=== PATIENT | male | born 1965 | race Caucasian/White ===

== ENCOUNTER 2025-03-24 22:03 | Inpatient (IN) | payer BC, SELFPAY ==
[2025-03-24] VITALS (8 sets, daily range): BP systolic 92–145; BP diastolic 51–93
[2025-03-24 13:22] LABS: Hematocrit 33.9 % (39.0-52.0); Hemoglobin 10.9 g/dL (13.0-18.0); Mean Corp Hgb Conc. 32.2 g/dL (33.0-37.0); Mean Corpuscular Volume 80.7 fL (80.0-94.0); Nucleated Red Blood Cells % 0 % (-); Platelet Count 300 10^3/uL (130-400); Red Cell Dist. Width 16.3 % (11.5-14.5)
[2025-03-24 13:51] LABS: ALT (SGPT) 15 U/L (0-50); AST (SGOT) 18 U/L (17-59); Albumin 3.7 g/dl (3.5-5.0); Alkaline Phosphatase 66 U/L (38-126); Blood Urea Nitrogen 23 mg/dl (9-20); Calcium 8.8 mg/dl (8.4-10.2); Carbon Dioxide 16 mmol/L (22-30); Chloride 113 mmol/L (98-107); Glucose 94 mg/dl (70-99); Lipase 184 U/L (23-300); Potassium 3.6 mmol/L (3.5-5.1); Sodium 138 mmol/L (135-145); Total Protein 6.7 g/dl (6.3-8.2); eGFR 49.63
[2025-03-24 14:24] LABS: COVID-19 Antigen Negative (Negative)
--- NOTE | 2025-03-24 17:33 | ED.GENMED ---
History of Present Illness
<Renata Ron PA-C - Last Filed: 03/25/25 02:25>
General
Chief Complaint: Abdominal Symptoms
Source: patient
Exam Limitations: none
Time Seen by Provider: 03/24/25 16:55
Nursing documentation reviewed up to this point in time: agreed with
History of Present Illness
History of Present Illness:
Patient is a 59-year-old male with history CAD s/p stents who presents to the emergency department with 2 days of shaking chills now with vomiting, diarrhea, and lower abdominal pain. Patient states that yesterday he experienced 'shaking chills'.
When he woke this morning he had multiple episodes of vomiting and diarrhea. He also describes a pain in his lower abdomen, most significant in his left lower quadrant. Symptoms have been relatively consistent throughout the day today prompting
visit to the emergency department.
He denies any dysuria or hematuria. No known fever. No other viral URI symptoms.
Patient states that he was recently admitted at an outside hospital for over 1 week for diverticulitis complicated by E. coli bacteremia. He was discharged about 1 month ago.
He is scheduled to see his GI doctor in June.
Review of Systems
<Renata Ron PA-C - Last Filed: 03/25/25 02:25>
Review of Systems
Allergies reviewed?: Yes
All Other Systems: ROS reviewed and negative except as documented in HPI and ROS
Phy Exam
<Renata Ron PA-C - Last Filed: 03/25/25 02:25>
Physical Exam
Physical Exam:
Vitals: Tachycardic on arrival, improved by assessment. Afebrile
General: Patient is well appearing, no acute distress. Nontoxic appearing
Skin: Warm and dry, no rashes or lesions
Head: Normocephalic, atraumatic
Eyes: Sclera nonicteric.
Throat: Protecting airway
Neck: Normal ROM, no cervical spine tenderness, no meningismus
Cardiac: Regular rate and rhythm, no murmurs.
Pulm: Normal respiratory effort, no wheezes, rales, rhonchi heard on exam
Abdomen: Abdomen soft. Focal tenderness in left lower quadrant. No rebound tenderness or guarding. No CVA tenderness.
Extremities: No evidence of cyanosis or edema. Palpable DP pulses bilaterally
Neuro: AAOx3. Grossly intact.
Psychiatric: Normal affect.
Course
<Renata Ron PA-C - Last Filed: 03/25/25 02:25>
Orders/Labs/Results
Orders:
Orders
03/24/25 13:05
COVID-19 Antigen Urgent
Source: Nasal Swab
Complete Blood Count/With Diff Urgent
Comprehensive Metabolic Panel Urgent
Lipase Urgent
Influenza A+B Rapid Molecular Urgent
DARIELA Source: Nasal Swab
Specimen Description:
03/24/25 13:33
STOOL [C difficile Antigen & Toxins] Urgent
DARIELA Source: Feces/Stool
Specimen Description:
Stool Culture Urgent
DARIELA Source: Feces/Stool
Specimen Description:
03/24/25 17:17
0.9% Sodium Chloride 1000 ml [Nss] 1,000 ml IV BOLUS
03/24/25 17:18
CT Abd/pelvis W Iv Cont Urgent
Comment:
Reason For Exam: LLQ pain
03/24/25 18:25
Lactic Acid Q4H
Comment: CANCEL 2nd LACTIC ACID IF 1st LACTIC ACID IS LESS THAN 2
Urinalysis Reflex To Culture Urgent
Date Specimen was Collected: 03/24/25
Time Specimen was Collected: 17:37
Urine Microscopic Reflex Cult Urgent
Blood Culture Q30M
DARIELA Source: Blood/Venous
Specimen Description:
Blood Culture Q30M
DARIELA Source: Blood/Venous
Specimen Description:
03/24/25 20:30
Morphine Sulfate 4 mg IV NOW STA
Piperacillin/Tazo 3.375 Gram [Zosyn] 3.375 gram in 50 ml IV NOW
03/24/25 21:12
Admit/Transfer Patient As Directed
Co-Sign Provider:
Level of Care: Inpatient admission
Assign to:: Medical/Surgical
Physician / Group: Sarah
Diagnosis: acute diverticulitis
Reason for Hospitalization: acute diverticulitis with intra-mural abscess
Expected length of stay greater than two midnights?: Yes
ELOS- Estimated Length of Stay in days: 2
I certify the patient meets the requirements for IP care: Yes
PRN Pain Medication Management As Directed
May give lesser potent ordered pain med per pt: Yes
preference::
Protocol:: Medication orders for pain may be administered in a
manner that supports deferring to patient preference
when the pt is:
- Requesting an ordered lesser potent pain medication.
Least to most potent pain medications are defined
as: acetaminophen < NSAID < tramadol < opioids
(morphine, oxycodone, hydromorphone).
- Requesting a lesser dose of the same medication IF
ORDERED.
- Requesting a less intrusive route of administration
if both routes are prescribed by the provider (PO <
IV).
03/24/25 21:13
Code Status As Directed
Resuscitation Status: Full Code
03/25/25 02:02
Acetaminophen [Tylenol] 650 mg PO Q4HPRN PRN
Colchicine 0.6 mg PO DAILYPRN PRN gout
Heparin 5,000 units SC Q8
Lactated Ringers [Lr] 1,000 ml IV 100 mls/hr
Morphine Sulfate 2 mg IV Q4HPRN PRN
Ondansetron Injectable [Zofran] 4 mg IV Q6HPRN PRN
Oxycodone [Roxicodone] 5 mg PO Q4HPRN PRN
03/25/25 02:02
ColoRectal Surgery Consult Routine
Consulting Provider: Chano Salinas
Was physician already notified: Yes
Reason for consult: acute diverticulitis with intra-mural abscess
Activity As Directed
Activity Level: With Assistance
Vital Signs As Directed
Frequency: Per unit guidelines
DX Deep Vein Thrombosis Video Routine
03/25/25 02:30
Piperacillin/Tazo 3.375 Gram [Zosyn] 3.375 gram in 50 ml IV Q6H
03/25/25 06:00
Basic Metabolic Panel IN AM
Complete Blood Count/No Diff IN AM
Magnesium IN AM
03/25/25 08:00
Allopurinol [Zyloprim] 100 mg PO DAILY
Amlodipine [Norvasc] 10 mg PO DAILY
Aspirin Low Dose EC [Aspir Low (Enteric Coated)] 81 mg PO DAILY
Losartan [Cozaar] 100 mg PO DAILY
Metoprolol Xl [Toprol Xl] 50 mg PO DAILY
Prasugrel Hydrochloride [Effient] 10 mg PO DAILY
03/25/25 Dinner
NPO
Allow oral meds: Yes
Allow clear liquids: Sips of Clears
Abnormal Lab Results
03/24/25 03/24/25
13:05 18:25
WBC 12.1 H 10^3/uL
(4.8-10.8)
RBC 4.20 L 10^6/uL
(4.70-6.10)
Hgb 10.9 L g/dL
(13.0-18.0)
Hct 33.9 L %
(39.0-52.0)
MCH 26.0 L pg
(27.0-31.0)
MCHC 32.2 L g/dL
(33.0-37.0)
RDW 16.3 H %
(11.5-14.5)
Abs Immat Gran (auto) 0.1 H 10^3/uL
(0-0.05)
Absolute Neuts (auto) 11.5 H 10^3/uL
(1.4-6.5)
Absolute Lymphs (auto) 0.3 L 10^3/uL
(1.2-3.4)
Neutrophils % 95.1 H %
(42.2-75.2)
Lymphocytes % 2.6 L %
(20.5-51.1)
Monocytes % 1.5 L %
(1.7-9.3)
Chloride 113 H mmol/L
(98-107)
Carbon Dioxide 16 L mmol/L
(22-30)
BUN 23 H mg/dl
(9-20)
Creatinine 1.6 H mg/dL
(0.7-1.3)
Urine Bacteria (Reflex) Few A
(Negative)
Urine Albumin (Reflex) 1+ A
(Neg - Trace)
03/24/25 13:05
03/24/25 13:05
Vital Signs
Initial and Last Documented VS:
Initial Vital Signs
Temp Pulse Resp BP Pulse Ox
99.5 F 127 18 109/93 96
03/24/25 12:57 03/24/25 12:57 03/24/25 12:57 03/24/25 12:57 03/24/25 12:57
Last Documented Vital Signs
Temp Pulse Resp BP Pulse Ox
98.3 F 84 22 110/54 98
03/24/25 19:55 03/24/25 19:55 03/24/25 19:55 03/24/25 19:55 03/24/25 20:11
<Milton Cornelius, DO - Last Filed: 03/24/25 21:26>
Orders/Labs/Results
Orders:
Orders
03/24/25 13:05
COVID-19 Antigen Urgent
Source: Nasal Swab
Complete Blood Count/With Diff Urgent
Comprehensive Metabolic Panel Urgent
Lipase Urgent
Influenza A+B Rapid Molecular Urgent
DARIELA Source: Nasal Swab
Specimen Description:
03/24/25 13:33
STOOL [C difficile Antigen & Toxins] Urgent
DARIELA Source: Feces/Stool
Specimen Description:
Stool Culture Urgent
DARIELA Source: Feces/Stool
Specimen Description:
03/24/25 17:17
0.9% Sodium Chloride 1000 ml [Nss] 1,000 ml IV BOLUS
03/24/25 17:18
CT Abd/pelvis W Iv Cont Urgent
Comment:
Reason For Exam: LLQ pain
03/24/25 18:25
Lactic Acid Q4H
Comment: CANCEL 2nd LACTIC ACID IF 1st LACTIC ACID IS LESS THAN 2
Urinalysis Reflex To Culture Urgent
Date Specimen was Collected: 03/24/25
Time Specimen was Collected: 17:37
Urine Microscopic Reflex Cult Urgent
Blood Culture Q30M
DARIELA Source: Blood/Venous
Specimen Description:
Blood Culture Q30M
DARIELA Source: Blood/Venous
Specimen Description:
03/24/25 20:30
Morphine Sulfate 4 mg IV NOW STA
Piperacillin/Tazo 3.375 Gram [Zosyn] 3.375 gram in 50 ml IV NOW
03/24/25 21:12
Admit/Transfer Patient As Directed
Co-Sign Provider:
Level of Care: Inpatient admission
Assign to:: Medical/Surgical
Physician / Group: Sarah
Diagnosis: acute diverticulitis
Reason for Hospitalization: acute diverticulitis with intra-mural abscess
Expected length of stay greater than two midnights?: Yes
ELOS- Estimated Length of Stay in days: 2
I certify the patient meets the requirements for IP care: Yes
PRN Pain Medication Management As Directed
May give lesser potent ordered pain med per pt: Yes
preference::
Protocol:: Medication orders for pain may be administered in a
manner that supports deferring to patient preference
when the pt is:
- Requesting an ordered lesser potent pain medication.
Least to most potent pain medications are defined
as: acetaminophen < NSAID < tramadol < opioids
(morphine, oxycodone, hydromorphone).
- Requesting a lesser dose of the same medication IF
ORDERED.
- Requesting a less intrusive route of administration
if both routes are prescribed by the provider (PO <
IV).
03/24/25 21:13
Code Status As Directed
Resuscitation Status: Full Code
03/25/25 02:02
Acetaminophen [Tylenol] 650 mg PO Q4HPRN PRN
Colchicine 0.6 mg PO DAILYPRN PRN gout
Heparin 5,000 units SC Q8
Lactated Ringers [Lr] 1,000 ml IV 100 mls/hr
Morphine Sulfate 2 mg IV Q4HPRN PRN
Ondansetron Injectable [Zofran] 4 mg IV Q6HPRN PRN
Oxycodone [Roxicodone] 5 mg PO Q4HPRN PRN
03/25/25 02:02
ColoRectal Surgery Consult Routine
Consulting Provider: Chano Salinas
Was physician already notified: Yes
Reason for consult: acute diverticulitis with intra-mural abscess
Activity As Directed
Activity Level: With Assistance
Vital Signs As Directed
Frequency: Per unit guidelines
DX Deep Vein Thrombosis Video Routine
03/25/25 02:30
Piperacillin/Tazo 3.375 Gram [Zosyn] 3.375 gram in 50 ml IV Q6H
03/25/25 06:00
Basic Metabolic Panel IN AM
Complete Blood Count/No Diff IN AM
Magnesium IN AM
03/25/25 08:00
Allopurinol [Zyloprim] 100 mg PO DAILY
Amlodipine [Norvasc] 10 mg PO DAILY
Aspirin Low Dose EC [Aspir Low (Enteric Coated)] 81 mg PO DAILY
Losartan [Cozaar] 100 mg PO DAILY
Metoprolol Xl [Toprol Xl] 50 mg PO DAILY
Prasugrel Hydrochloride [Effient] 10 mg PO DAILY
03/25/25 Dinner
NPO
Allow oral meds: Yes
Allow clear liquids: Sips of Clears
Abnormal Lab Results
03/24/25 03/24/25
13:05 18:25
WBC 12.1 H 10^3/uL
(4.8-10.8)
RBC 4.20 L 10^6/uL
(4.70-6.10)
Hgb 10.9 L g/dL
(13.0-18.0)
Hct 33.9 L %
(39.0-52.0)
MCH 26.0 L pg
(27.0-31.0)
MCHC 32.2 L g/dL
(33.0-37.0)
RDW 16.3 H %
(11.5-14.5)
Abs Immat Gran (auto) 0.1 H 10^3/uL
(0-0.05)
Absolute Neuts (auto) 11.5 H 10^3/uL
(1.4-6.5)
Absolute Lymphs (auto) 0.3 L 10^3/uL
(1.2-3.4)
Neutrophils % 95.1 H %
(42.2-75.2)
Lymphocytes % 2.6 L %
(20.5-51.1)
Monocytes % 1.5 L %
(1.7-9.3)
Chloride 113 H mmol/L
(98-107)
Carbon Dioxide 16 L mmol/L
(22-30)
BUN 23 H mg/dl
(9-20)
Creatinine 1.6 H mg/dL
(0.7-1.3)
Urine Bacteria (Reflex) Few A
(Negative)
Urine Albumin (Reflex) 1+ A
(Neg - Trace)
03/24/25 13:05
03/24/25 13:05
Vital Signs
Initial and Last Documented VS:
Initial Vital Signs
Temp Pulse Resp BP Pulse Ox
99.5 F 127 18 109/93 96
03/24/25 12:57 03/24/25 12:57 03/24/25 12:57 03/24/25 12:57 03/24/25 12:57
Last Documented Vital Signs
Temp Pulse Resp BP Pulse Ox
98.3 F 84 22 110/54 98
03/24/25 19:55 03/24/25 19:55 03/24/25 19:55 03/24/25 19:55 03/24/25 20:11
<Renata Ron PA-C - Last Filed: 03/25/25 02:25>
MDM/Problems Addressed
Differential Diagnosis Includes:
Not limited to: Diverticulitis, intra-abdominal abscess, bowel perforation, appendicitis, pyelonephritis/UTI, ureterolithiasis, C. difficile colitis, etc.
MDM/Problems Addressed:
59-year-old male presents with shaking chills, vomiting, diarrhea, and lower abdominal pain. Afebrile on arrival and hemodynamically stable. Exam notable for tenderness in the left lower quadrant. No peritoneal signs.
Laboratory evaluation shows leukocytosis (WBC 12.2); other labs are unremarkable. CT abdomen/pelvis demonstrates diverticulitis of the descending/sigmoid colon complicated by intramural abscess formation.
Given CT findings and systemic symptoms, patient requires inpatient admission for IV antibiotics and further management. Zosyn initiated in the ED along with IV fluid resuscitation. Blood cultures obtained.
Colorectal surgery and hospitalist services consulted. Surgery aware and will continue to follow. No immediate surgical intervention required at this time. Patient accepted to hospitalist service in stable condition for ongoing care and monitoring.
Chronic conditions affecting care:
Hypertension, history diverticulitis
Acute Exacerbation and/or Progression of Chronic Illness:
Acute diverticulitis complicated by intramural abscess
<Renata Ron PA-C - Last Filed: 03/25/25 02:25>
*Radiology
Radiology exam reviewed: radiology read reviewed
*Pulse Oximetry
SaO2: 96
Oxygen Mode of Delivery: Room air
Patient hypoxic: no
*EKG
Interpreted by ED Provider?: NA
*Terminal Operator Interpretation
Rate: Terminal Operator- N/A
*Critical Care Note
Total Time (30-74mins, 75-104mins- exclusive of procedures): Not Applicable
<Renata Ron PA-C - Last Filed: 03/25/25 02:25>
Patient Management
Discussion with other providers: Hospitalist and Nut [employer] (Case discussed with colorectal surgeon)
Escalation/DeEscalation of care consider admission/obs:
Admit for IV antibiotics and further management
ED Attending Note
<Renata Ron PA-C - Last Filed: 03/25/25 02:25>
-
Portions of this chart may have been created with voice recognition software.� Occasional wrong word or��sound alike� substitutions may have occurred due to the inherent limitations of voice recognition software.
<Milton Cornelius DO - Last Filed: 03/24/25 21:26>
ED Attending Note
Patient seen and examined by attending physician: Yes
I performed the substantive portion of visit, reviewed & personally made and approve the management plan that is documented in note by myself or LALITO.: Yes
ED Attending Note:
Seen with LALITO agree with assessment and plan nontoxic male
Discharge Plan
Departure
Patient Disposition: Admit
Date of Disposition: 03/24/25
Time of Disposition: 20:52
Presentation/result/management discussed w/ accepting MD/DO: Hospitalist
Discharge Problem:
Diverticulitis of intestine with abscess
Interventions
Interventions:
*Risk Screen - Suicide Last Done: 03/24/25 12:57
*General Assessment Last Done: 03/24/25 12:57
*Neglect/Abuse Screening Last Done: 03/24/25 12:57
*ED- Fall Risk Assessment Last Done: 03/24/25 12:57
*ED COVID-19 Vaccine History Last Done: 03/24/25 12:57
*ED Influenza Vaccine History Last Done: 03/24/25 12:57
PP-Jyubba-[id number] Assessment Last Done: 03/24/25 19:59
[2025-03-24 18:58] LABS: Urine Character Clear (Clear)
[2025-03-24 19:05] LABS: Urine Red Blood Cell 0-2 /HPF (0-2); Urine Squamous Cell 0-2 /LPF (Few); Urine White Cell 0-2 /HPF (0-5)
[2025-03-24] MEDS: NSS 1000 IV (20:04)
[2025-03-24] MEDS: MORPHINE SULFATE 4 MG IV (21:05)
--- NOTE | 2025-03-24 21:06 | HPS.HSE ---
Family Physician
-
Family Physician: Kaitlin Ball MD, [place]
Chief Complaint
-
Abdominal pain
History of Present Illness
Patient is a 59-year-old male with past medical history significant for CAD status post stenting, hypertension, hyperlipidemia, gout, CKD will presents to the emergency department with 3 days of shaking chills, nausea vomiting diarrhea and lower
abdominal pain.
Patient reports onset of shaking chills yesterday. When he awoke this morning he had multiple episodes of vomiting and diarrhea. He denies any hematochezia. He reports sharp pain localized to the left lower quadrant. Reports symptoms have been
constant throughout the day which prompted visit to the ED. He denies any urinary symptoms. He denies any cough shortness of breath or sore throat nasal congestion or other URI symptoms. He denies any rash. He denies any joint swelling aches or
pains.
Patient reports history of regarding diverticulitis distended about 2 years ago. He last had an episode about 1 month ago that was complicated by E. coli bacteremia for which he was on antibiotics with ED hospital for 9 days. He was recommended
surgery but due to his recent AL, status post tenting and brought antibiotic therapy this was deferred until further notice.
Patient stated that when he was admitted to [facility] for his recent diverticulitis he did not have an abscess.
In the emergency department here he was afebrile, blood pressure was 110/54, pulse of 84 oxygen saturation of 98% on room air.
WBC of 12.1, hemoglobin 10.9 platelet 300. BUN and creatinine with a 23 and 1.6 with a bicarb of 16. Glucose was normal.
His CT of the abdomen pelvis showed findings compatible with diverticulitis involving the distal descending colon and sigmoid colon. There is evidence for intramural abscess. No evidence for free intraperitoneal air. No significant free pelvic fluid.
Small 5 mm low-density lesion within the anterior spleen, compatible with small cyst or hemangioma. No further imaging follow-up of this finding is felt to be needed.
Small fat-containing umbilical hernia with no evidence for inflammation/edema.
Moderate atrophy of the left kidney with patchy scarring. This finding is most commonly seen from chronic vascular insufficiency.
Multiple right-sided nephroliths. Preservation of right kidney parenchymal thickness. No evidence for ureteral calculus.
Medical History
Past Medical History
Past Medical History: Reports CAD, HTN, Hypercholesterolemia and Other (Chronic kidney disease, gout)
Past Surgical History: Reports Other
Social History
Tobacco: Non-smoker
Alcohol: None
Drug: None
Personal:
Family History
Family History: Not pertinent
Allergies / Home Medications
Allergies reflects when Allergies were last updated in [employer].
Home Medications with original date entered in [employer]
Allergy/Medication List:
Allergies
Allergy/AdvReac Type Severity Reaction Status Date / Time
No Known Allergies Allergy Unverified 03/24/25 12:58
Home Medications
allopurinol 100 mg tablet 100 mg PO DAILY 03/24/25
amlodipine 10 mg tablet (Norvasc) 10 mg PO DAILY 03/24/25
aspirin 81 mg tablet,delayed release 81 mg PO DAILY 03/24/25
colchicine 0.6 mg tablet 0.6 mg PO DAILYPRN PRN gout 03/24/25
evolocumab 140 mg/mL subcutaneous pen injector (Repatha SureClick) 140 mg SC Q2W 03/24/25
ibuprofen 200 mg tablet (Advil) 400 mg PO Q8HPRN PRN mild pain 03/24/25
losartan 100 mg tablet 100 mg PO DAILY 03/24/25
metoprolol succinate 50 mg tablet,extended release 24 hr (Toprol XL) 50 mg PO DAILY 03/24/25
nitroglycerin 0.4 mg sublingual tablet (Nitrostat) 0.4 mg sublingual [id number] PRN chest pains 03/24/25
prasugrel HCl 10 mg tablet 10 mg PO DAILY 03/24/25
prednisone 20 mg tablet 20 mg PO DAILY 03/24/25
Review of Systems
-
Constitutional: Reports Chills
EENT: Reports No Symptoms
Respiratory: Reports No Symptoms
Cardiac: Reports No Symptoms
Abdomen/GI: Reports Abdominal Pain, Vomiting and Diarrhea
: Reports No Symptoms
Musculoskeletal: Reports No Symptoms
Skin: Reports No Symptoms
Neurological: Reports No Symptoms
Endocrine: Reports No Symptoms
Hematologic/Lymphatic: Reports No Symptoms
Psych: Reports No Symptoms
Physical Exam
Vital Signs
Vital Signs
Temp Pulse Resp BP Pulse Ox
98.3 F 84 22 110/54 98
03/24/25 19:55 03/24/25 19:55 03/24/25 19:55 03/24/25 19:55 03/24/25 20:11
Physical Exam
General: Well Developed, Well Nourished and No Apparent Distress
HEENT: NormoCephalic, Moist mucous membranes and Atraumatic
Respiratory: Clear
Cardiac: S1/S2 and Regular Rhythm; No Murmur or Rub
GI: Soft, Non Distended and Normal Bowel Sounds; No Organomegaly
Rectal: Deferred by Provider
Musculoskeletal: No Clubbing, No Cyanosis and No Edema
Skin: No Rash
Neuro: Nonfocal/grossly intact
Laboratory Results
-
03/24/25 13:05
03/24/25 13:05
Laboratory Results
Lactic Acid Cancelled 03/24/25 21:30
Total Bilirubin 0.7 mg/dl (0.2-1.3) 03/24/25 13:05
AST 18 U/L (17-59) 03/24/25 13:05
ALT 15 U/L (0-50) 03/24/25 13:05
Alkaline Phosphatase 66 U/L (38-126) 03/24/25 13:05
Lipase 184 U/L (23-300) 03/24/25 13:05
Data Reviewed
-
CT Scan: Report Reviewed by me
Lab Data: Labs Reviewed by me
Old Records: Reviewed
Impression/Plan
-
IMPRESSION:
59-year-old with history of CAD status post recent AL with 2 stents placed and known stentable small artery that was also diseased and possibly may need coronary artery bypass, CVA gout on allopurinol, as needed colchicine and as needed prednisone,
hypertension, hyperlipidemia, CKD stage III recurrent diverticulitis who now presents with abdominal pain and found to have acute diverticulitis with intramural abscess new compared to prior. He is afebrile currently. He is hemodynamically stable.
Prior diverticulitis complicated by E. coli bacteremia
PLAN:
Acute sigmoid colitis with intramural abscess
[facility]
-N.p.o. for now except ice chips
-Continue with IV Zosyn
-Blood cultures have been sent
-Will consult surgery, may need cardiology consult
CAD status post AL -last stent placed in December. Currently on dual antiplatelet therapy
-Will continue aspirin and prasugrel for now pending surgery evaluation
-Continue metoprolol
-He is on evolocumab
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
-Continue allopurinol
DVT prophylaxis�heparin subcu
CODE STATUS�full code
[2025-03-24] MEDS: ZOSYN 50 IV (21:07)
[2025-03-25 01:00] VITALS: BP 153/69
[2025-03-25 02:41] VITALS: BMI 27.9
[2025-03-25] MEDS: HEPARIN 5000 UNITS SC ×3 (02:51→16:52)
[2025-03-25] MEDS: LR 1000 IV ×2 (02:52→14:29)
[2025-03-25] MEDS: ZOSYN 50 IV ×4 (04:58→22:08)
[2025-03-25 06:13] LABS: Hematocrit 28.8 % (39.0-52.0); Hemoglobin 9.2 g/dL (13.0-18.0); Mean Corp Hgb Conc. 31.9 g/dL (33.0-37.0); Mean Corpuscular Volume 80.7 fL (80.0-94.0); Platelet Count 233 10^3/uL (130-400); Red Cell Dist. Width 16.4 % (11.5-14.5)
[2025-03-25 06:26] LABS: Blood Urea Nitrogen 19 mg/dl (9-20); Calcium 8.2 mg/dl (8.4-10.2); Carbon Dioxide 19 mmol/L (22-30); Chloride 111 mmol/L (98-107); Estimated Creatinine Clearance 43 ml/min; Glucose 89 mg/dl (70-99); Magnesium 1.6 mg/dl (1.6-2.3); Potassium 3.7 mmol/L (3.5-5.1); Sodium 136 mmol/L (135-145); eGFR 46.15
--- NOTE | 2025-03-25 07:26 | W.PN.HOSP.TC ---
Addendum entered and electronically signed by Greyson Bhandari MD 03/26/25 17:09:
I personally reviewed and evaluated this patient with the resident. I agree with above unless if otherwise stated below.
I personally reviewed labs and imaging hr business partner consultant notes case management note
Addendum entered and electronically signed by Greyson Bhandari MD 03/25/25 12:47:
Acute diverticulitis with potential abscess
Colorectal surgery
I ordered concern if plan for drain then potential risk for increased translocation
IV antibiotics
IV fluids
Clear liquid diet
Advance as tolerated
CAD s/p [place], PCI in December
Continue DAPT
Continue beta-blockers
Continue monoclonal Repatha
Gout, chronic, Tophi
Continue allopurinol
Read, reviewed, and agree. See same day progress note for additional details. Time spent reviewing records in EMR, med rec, consults, notes, d/w consultants, nursing, family, and CM
Original Note:
Today's Communication/Plan
-
Colorectal consult
Infectious disease consult
IRAD consult- regarding drainage of Abcess (<1cm)
Follow blood cultures
Assessment / Plan
Assessment / Plan
59-year-old male with past medical history significant for CAD status post stenting, hypertension, hyperlipidemia, gout, CKD presented with fever, chills and abdominal pain for last 3 days.
Yesterday he started having chills and the pain got worse that is why he presented to the ER.
In the emergency department here he was afebrile, blood pressure was 110/54, pulse of 84 oxygen saturation of 98% on room air.WBC of 12.1, hemoglobin 10.9 platelet 300. BUN and creatinine with a 23 and 1.6 with a bicarb of 16.
CT of the abdomen pelvis showed findings compatible with diverticulitis involving the distal descending colon and sigmoid colon. There is evidence for intramural abscess.
As per the patient, he had CABG done in December 2024 about 3 months ago in [place]. He was admitted in [facility] for an episode of diverticulitis, with bacteremia. Surgery was suggested for perforated bowel but due to his recent CABG it was
not done. He remained in hospital for 8 days and then took antibiotics for another 5 days at home.
Colorectal surgery consulted regarding the intramural abscess. Currently patient is on Zosyn
Leukocytosis resolved
Anemia with increased RDW
Patient has history of CKD, currently his serum creatinine is 1.7. eGFR 46.
Assessment/plan
#Acute diverticulitis with intramural abscess
Keep n.p.o. and continue IV fluids
Get records from [place]
Continue Zosyn
Colorectal consult
Infectious disease consult
IRAD consult- regarding drainage of Abcess (<1cm)
Follow blood cultures
Currently on dual antiplatelet therapy-cardiology consult for recent Stent?
Optimize pain management
# Leukocytosis
Resolved
#Coronary artery disease
s/p 4 MIs, 2 stents, last stent placed in December 2024
Dual antiplatelet therapy
Continue metoprolol
He is on Repatha therapy
#Gout
Tophi on fingers and elbows
Continue allopurinol
#CKD
Hold losartan
And amlodipine
DVT prophylaxis�heparin subcu
CODE STATUS�full code
Anticipated Discharge: > 48 hours
Subjective/Interval History
-
Date of Service: March 25, 2025
Patient seen and examined at bedside
Lying comfortably in bed, alert, oriented, reports some discomfort in left lower quadrant but no significant pain, denies nausea, vomiting, diarrhea
Remained afebrile overnight, currently n.p.o.
Objective Data
-
Labs:
Laboratory Results
03/25/25
05:34
WBC 10.6
Hgb 9.2 L
Hct 28.8 L
Plt Count 233 D
Sodium 136
Potassium 3.7
Chloride 111 H
Carbon Dioxide 19 L
BUN 19
Creatinine 1.7 H
Glucose 89
Calcium 8.2 L
Vital Signs:
Vital Signs
Temp Pulse Resp BP Pulse Ox
98.3 F 84 22 110/54 98
03/24/25 19:55 03/24/25 19:55 03/24/25 19:55 03/24/25 19:55 03/24/25 20:11
Review of Systems
-
All other systems: Reviewed and negative
Physical Exam
-
General: Well Developed, Well Nourished and No Apparent Distress
HEENT: Normocephalic, Moist Mucous Membranes, Anicteric and [place] Conjunctivae
Respiratory: Clear to Auscultation; Negative Wheezes, Rales or Rhonchi
Cardiac: Regular Rhythm and S1/S2
GI: Soft, Normal Bowel Sounds and Tender (Mild tenderness in left lower quadrant)
Musculoskeletal: No Clubbing, No Cyanosis, No Edema and Other (Tophi on fingers and elbows)
Skin: Warm and Dry
Neuro: Awake and AO x 3
Psych: Calm
[2025-03-25 07:46] VITALS: BP 123/63
[2025-03-25] MEDS: ZYLOPRIM 100 MG PO (07:49)
[2025-03-25] MEDS: TOPROL XL 50 MG PO (07:49)
[2025-03-25] MEDS: ASPIR LOW (ENTERIC COATED) 81 MG PO (07:49)
[2025-03-25] MEDS: COZAAR 100 MG PO (07:49)
[2025-03-25] MEDS: NORVASC 10 MG PO (07:49)
[2025-03-25] MEDS: EFFIENT 10 MG PO (07:53)
--- NOTE | 2025-03-25 13:01 | CON.CRS ---
Consultation
-
Date/Time Consultation Requested: 03/24/2025, 02:02
Date/Time Consultation Performed: 03/25/2025, 08:50
Requesting Provider: Carol Smith MD
Performing Provider: Chano Salinas MD
Reason for Consultation: diverticulitis
Medical History
-
Chief Complaint: abdominal pain
History of Present Illness:
59yo male, with a recent WI x 2 months ago and cardiac stents, with multiple attacks of diverticulitis in the past, presents to the ER complaining of abdominal pain and chills. The patient states he has had diverticulitis since two years ago and
probably had 'at least 4 episodes' since June 2024. He was recently hospitalized at [place] about a month ago for diverticulitis with a secondary e.coli bacteremia. He was discharged after several days and finished a course of po antibiotics.
That was finished about two weeks ago. He was asymptomatic until about two days ago where he developed chills which was then preceded by abdominal pain and shaking. Yesterday he started vomiting later in the afternoon followed by shortness of
breath. He had loose stools today but no blood. He had three colonoscopies in 2023 due to diverticulitis, all of which were 'clean' expect for 1 polyp. Denies a family history of colorectal cancer.
On arrival to the Er his WBC was 12.1 and now is 10.6. CT A/P shows in the left anterolateral pelvis, there is an approximately 12 cm long segment of moderate severe wall thickening involving the distal descending colon and superior sigmoid colon.
Significant stranding of the adjacent fat. Findings are compatible with colitis, most likely diverticulitis with scattered diverticula are present involving the descending colon and superior sigmoid colon.
Additionally, in the anterior and superior wall of the involved segment, there is a focal predominantly fluid collection with a thickened enhancing border, also containing small foci of air. The appearance is compatible with an intramural abscess,
probably best seen on sagittal image 48 of series 203. This intramural abscess measures 3.5 cm AP by 1.9 cm transverse by 2.3 cm craniocaudal. Given these findings, we have been consulted for further surigcal opinion.
Past Medical History
Past Medical History: Other (Chronic kidney disease, gout, CAD, HTN, Hypercholesterolemia, Hx recent WI (2 months ago in [place]) gout, Diverticulitis (many in the past))
Social History
Tobacco: Non-Smoker
Alcohol: Former
Drug: None
Employment: Employed
Family History
Family History: Reviewed & Not Pertinent
Allergies / Home Medications
Allergy/AdvReac Type Severity Reaction Status Date / Time
No Known Allergies Allergy Unverified 03/24/25 12:58
�Medication �Instructions �Recorded �Confirmed �Type
allopurinol 100 mg tablet 100 mg PO DAILY 03/24/25 03/24/25 History
amlodipine 10 mg tablet (Norvasc) 10 mg PO DAILY 03/24/25 03/24/25 History
aspirin 81 mg tablet,delayed 81 mg PO DAILY 03/24/25 03/24/25 History
release
colchicine 0.6 mg tablet 0.6 mg PO DAILYPRN PRN gout 03/24/25 03/24/25 History
evolocumab 140 mg/mL subcutaneous 140 mg SC Q2W 03/24/25 03/24/25 History
pen injector (Repatha SureClick)
ibuprofen 200 mg tablet (Advil) 400 mg PO Q8HPRN PRN mild pain 03/24/25 03/24/25 History
losartan 100 mg tablet 100 mg PO DAILY 03/24/25 03/24/25 History
metoprolol succinate 50 mg 50 mg PO DAILY 03/24/25 03/24/25 History
tablet,extended release 24 hr
(Toprol XL)
nitroglycerin 0.4 mg sublingual 0.4 mg sublingual [id number] PRN 03/24/25 03/24/25 History
tablet (Nitrostat) chest pains
prasugrel HCl 10 mg tablet 10 mg PO DAILY 03/24/25 03/24/25 History
prednisone 20 mg tablet 20 mg PO DAILY 03/24/25 03/24/25 History
Review of Systems
-
History Source: Patient
Constitutional: Chills
Abdomen/GI: Abdominal Pain, Vomiting and Diarrhea
A 10 point review of systems was completed, and was negative except as per HPI.
Physical Exam
Vital Signs
Temp 98.7 F 03/25/25 07:46
Pulse 86 03/25/25 07:49
Resp Rate 16 03/25/25 07:46
Blood pressure 123/63 03/25/25 07:49
SaO2 96 03/25/25 07:46
03/24/25 03/25/25 03/26/25
06:59 06:59 06:59
Actual Weight 78.471 kg
Body Mass Index (BMI) 27.9
Lab Results / Allergies
03/25/25 05:34
03/25/25 05:34
WBC 10.6 10^3/uL (4.8-10.8) 03/25/25 05:34
Hgb 9.2 g/dL (13.0-18.0) L 03/25/25 05:34
Hct 28.8 % (39.0-52.0) L 03/25/25 05:34
Plt Count 233 10^3/uL (130-400) D 03/25/25 05:34
Abs Immat Gran (auto) 0.1 10^3/uL (0-0.05) H 03/24/25 13:05
Neutrophils % 95.1 % (42.2-75.2) H 03/24/25 13:05
Allergy/AdvReac Type Severity Reaction Status Date / Time
No Known Allergies Allergy Unverified 03/24/25 12:58
Physical Exam
General: Well Developed, Well Nourished and No Apparent Distress
GI: Soft, Non Distended and Tender (LLQ- mild)
Skin: Warm and Dry
Neuro: AO x 3
Psych: Calm
Data Reviewed
-
CT Scan: Image Personally Visualized and interpreted, Report Reviewed by me and Discussed with Patient
Labs: Labs Reviewed by me, Discussed with Physician and Discussed with Patient
Assessment / Plan
-
Assessment: 59yo male with a PMH of multiple episodes of diverticulitis, most recently complicated by e.coli bacteremia, as well as a recent WI x 2 months ago with stent in place, presents with abdominal pain/chills and found to have acute sigmoid
diverticulitis with an intramural abscess measuring 3.5 cm by 1.9 cm by 2.3 cm
Plan:
-Advance diet to clears
-Continue IV antibiotics
-Continue IVFs
-Appreciate ID consult
-No plans for surgery at this time. If he worsens, he will require a colectomy with colostomy. Discussed with patient.
-He is a candidate for eventual elective surgery. Will need to discuss timing with employee benefits director on when he can safetly hold Prasugrel given recent stent 2 months ago.
--- NOTE | 2025-03-25 13:16 | CON.ID ---
Consultation
-
Date/Time Consultation Requested: 03/25/2025 1032
Date/Time Consultation Performed: 03/25/2025 1316
Requesting Provider: Dr. Weir
Performing Provider: Dr. Correa
Reason for Consultation: Diverticulitis with abscess
Chief Complaint / Past History
History of Present Illness
Milton Ramos is a 59-year-old man being evaluated in the infectious disease consultation regarding diverticulitis and diverticular abscess. History is obtained from chart review, along with patient interview.
Patient has a significant past medical history of CAD and presents to the ER here at [facility] on 03/24/2025 following approximately 48 hours of shaking chills, with progression to vomiting, diarrhea and lower abdominal pain. Lower
abdominal pain is localized to the left lower quadrant, and pain is noted to be relatively consistent. No fevers prior to admission. The patient admits that approximately 1 month ago he was admitted to [facility] for about 8 days in the treatment of
diverticulitis and E. coli bacteremia. He reports he was placed on a course of an antibiotic (unknown at this time) at discharge, which she continued for an additional week. He recalls that his last dose of this antibiotic was on approximately
03/01/2025.
Workup in the ER has revealed a leukocytosis, and CT imaging has revealed the presence of a intramural abscess. Infectious Diseases asked to comment upon further antimicrobial management.
Past History
Additional Past Medical History:
CAD; Hx recent GA (2 months ago in [place])
HTN
HLD
CKD
Tophaceous gout
Diverticulitis
Additional Past Surgical History:
PCI with stenting
Allergy History:
No Known Allergies Allergy (Unverified 03/24/25 12:58)
Medications Reviewed: Yes
Current Antibiotics:
Zosyn 3.375 gm IV q.6 hours
Social History
Tobacco: Non-Smoker
Alcohol: None
Drug: None
Personal:
Living: With Family
Employment: Employed
Family History
Family History: Not Pertinent
Review of Systems
Vital Signs
Temp Pulse Resp BP Pulse Ox
98.7 F 86 16 123/63 96
03/25/25 07:46 03/25/25 07:49 03/25/25 07:46 03/25/25 07:49 03/25/25 07:46
Physical Exam
Physical Exam
Constitutional: No Acute Distress, Comfortable and Non-toxic
Eyes: No Conjunctival Hemorrhage and Sclera Anicteric
Oral: No Thrush and No Ulcers
Cardiovascular: Regular Rate and S1/S2; Negative S3/S4
Pulmonary: Clear; Negative Wheezes, Rales or Rhonchi
Gastrointestinal: Soft, Tender (Left lower quadrant), Non Distended, Normal Bowel Sounds, No Rebound and No Guarding
Genito-Urinary: Negative [place]
Extremities: Negative Edema, Cyanosis or Erythema
Neurological: Awake and Alert
Psychological: Calm
Lab / Diagnostic Study Results
03/25/25 05:34
03/25/25 05:34
Abs Immat Gran (auto) 0.1 10^3/uL (0-0.05) H 03/24/25 13:05
Absolute Neuts (auto) 11.5 10^3/uL (1.4-6.5) H 03/24/25 13:05
Absolute Lymphs (auto) 0.3 10^3/uL (1.2-3.4) L 03/24/25 13:05
Absolute Monos (auto) 0.2 10^3/uL (0.1-0.6) 03/24/25 13:05
Absolute Basos (auto) 0.0 10^3/uL (0-0.2) 03/24/25 13:05
Immature Gran % 0.4 % (0-0.5) 03/24/25 13:05
Neutrophils % 95.1 % (42.2-75.2) H 03/24/25 13:05
Lymphocytes % 2.6 % (20.5-51.1) L 03/24/25 13:05
Monocytes % 1.5 % (1.7-9.3) L 03/24/25 13:05
Eosinophils % 0.2 % (0-6) 03/24/25 13:05
Basophils % 0.2 % (0-2) 03/24/25 13:05
Lactic Acid Cancelled 03/24/25 21:30
Ur Squamous Epith Cells 0-2 /LPF (Few) 03/24/25 18:25
Microbiology Results
Micro:
03/24/25 18:25 Blood Culture - Pending
Blood/Venous
03/24/25 18:25 Blood Culture - Pending
Blood/Venous
03/24/25 13:05 Influenza Types A & B (GABRIELLE) - Final
Nasal Swab Negative for Influenza A & B, NAAT
Negative results must be combined with clinical observations
and patient history.
Nucleic Acid Amplification test (NAAT)performed on the
[employer] platform.
Imaging:
03/24/2025 CT abdomen/pelvis with contrast: CT findings compatible with diverticulitis involving the distal descending colon and sigmoid colon. In the left anterolateral pelvis, there is an approximately 12 cm long segment of moderate severe wall
thickening involving the distal descending colon and superior sigmoid colon. Significant stranding of the adjacent fat. Findings are compatible with colitis, most likely diverticulitis with scattered diverticula are present involving the descending
colon and superior sigmoid colon. Additionally, in the anterior and superior wall of the involved segment, there is a focal predominantly fluid collection with a thickened enhancing border, also containing small foci of air. The appearance is
compatible with an intramural abscess, probably best seen on sagittal image 48 of series 203. This intramural abscess measures 3.5 cm AP by 1.9 cm transverse by 2.3 cm craniocaudal.
Assessment / Plan
Acute diverticulitis
Diverticular abscess (intramural)
Leukocytosis
CAD; Hx recent GA (2 months ago in [place])
HTN
HLD
CKD stage IIIb
Tophaceous gout
Recommendations:
Continue with empiric Zosyn.
Monitor white count and temperature curve.
Follow pending blood cultures.
Obtain records from recent hospitalization at [facility], including cultures and consultation reports.
Follow-up for clinical improvement.
Further recommendations as additional data is returned.
[2025-03-25 15:00] VITALS: BP 119/75
[2025-03-25 21:20] LABS: C-Reactive Protein 109.90 mg/L (0.0-10.00)
[2025-03-25 22:17] VITALS: BP 128/71
[2025-03-26] MEDS: TYLENOL 1000 MG PO ×4 (01:00→17:29)
[2025-03-26] MEDS: HEPARIN 5000 UNITS SC ×4 (01:00→23:54)
[2025-03-26] MEDS: LR 1000 IV (03:10)
[2025-03-26] MEDS: ZOSYN 50 IV ×2 (04:59→10:52)
[2025-03-26 05:54] LABS: Hematocrit 32.5 % (39.0-52.0); Hemoglobin 10.1 g/dL (13.0-18.0); Mean Corp Hgb Conc. 31.1 g/dL (33.0-37.0); Mean Corpuscular Volume 84.4 fL (80.0-94.0); Nucleated Red Blood Cells % 0 % (-); Platelet Count 227 10^3/uL (130-400); Red Cell Dist. Width 16.3 % (11.5-14.5)
[2025-03-26 06:18] LABS: ALT (SGPT) 22 U/L (0-50); AST (SGOT) 23 U/L (17-59); Albumin 3.0 g/dl (3.5-5.0); Alkaline Phosphatase 67 U/L (38-126); Blood Urea Nitrogen 16 mg/dl (9-20); Calcium 8.6 mg/dl (8.4-10.2); Carbon Dioxide 22 mmol/L (22-30); Chloride 111 mmol/L (98-107); Estimated Creatinine Clearance 45 ml/min; Glucose 78 mg/dl (70-99); Magnesium 2.1 mg/dl (1.6-2.3); Potassium 3.7 mmol/L (3.5-5.1); Sodium 139 mmol/L (135-145); Total Protein 5.5 g/dl (6.3-8.2); eGFR 49.63
--- NOTE | 2025-03-26 06:19 | PTCARENOTE ---
Patient arrived on unit @2149 via stretcher from ED, ambulate to bed with standby assist. Patient AAOx3, denies any pain or discomfort. Skin assessment completed, oriented to unit, call [facility] within reach.
[2025-03-26 06:21] LABS: C-Reactive Protein 79.40 mg/L (0.0-10.00)
--- NOTE | 2025-03-26 07:04 | W.PN.HOSP.TC ---
Addendum entered and electronically signed by Greyson Bhandari MD 03/26/25 16:02:
Gram-positive bacteremia which could be a contaminant or could be translocation
Await speciation and sensitivities
Repeat blood cultures
2D echocardiogram ordered
Add vancomycin
Continue Zosyn
Acute diverticulitis with potential abscess
Colorectal surgery
I ordered concern if plan for drain then potential risk for increased translocation
IV antibiotics
IV fluids
Clear liquid diet
Advance as tolerated
CAD s/p CT, PCI in December
Continue DAPT
Continue beta-blockers
Continue monoclonal Repatha
Gout, chronic, Tophi
Continue allopurinol
I personally reviewed and evaluated this patient with the resident. I agree with above unless if otherwise stated below.
I personally reviewed labs and imaging marine consultant notes case management note
Original Note:
Today's Communication/Plan
-
Advance diet as tolerated
PT/OT
Follow blood cultures
Assessment / Plan
Assessment / Plan
59-year-old male with past medical history significant for CAD status post stenting, hypertension, hyperlipidemia, gout, CKD presented with fever, chills and abdominal pain for last 3 days.
Yesterday he started having chills and the pain got worse that is why he presented to the ER.
In the emergency department here he was afebrile, blood pressure was 110/54, pulse of 84 oxygen saturation of 98% on room air.WBC of 12.1, hemoglobin 10.9 platelet 300. BUN and creatinine with a 23 and 1.6 with a bicarb of 16.
CT of the abdomen pelvis showed findings compatible with diverticulitis involving the distal descending colon and sigmoid colon. There is evidence for intramural abscess.
As per the patient, he had CABG done in December 2024 about 2 months ago in [place]. He was admitted in [facility] for an episode of diverticulitis, with bacteremia. Surgery was suggested for perforated bowel but due to his recent CABG it was
not done. He remained in hospital for 8 days and then took antibiotics for another 5 days at home.
Colorectal surgery consulted regarding the intramural abscess. Currently patient is on Zosyn
Assessment/plan
# Sepsis secondary to complicated acute diverticulitis with intramural abscess
Patient fulfilled criteria of sepsis on admission with chills, leukocytosis, tachycardia and low grade fever
Leukocytosis resolved
Hemoglobin stable
Bowel rest, IVF and pain management and started on clears per colorectal
Colorectal surgery consult appreciated-no acute surgical intervention, recommend nonoperative measures
Recurrent diverticulitis episodes from 2 years, 4 episodes per year, recently admitted to [place] 1 month ago diverticulitis with bacteremia
Best treatment option sigmoidectomy after resolution of acute episode
IRAD consult appreciated-abscess is too small to be drained
Infectious disease recommendations appreciated-continue empiric Zosyn, follow blood cultures
Blood cultures from 03/24-reveals gram-positive cocci in chains and pairs-ID following
Stool culture pending
Plan to advance diet to low residue, currently on full liquid diet
# Leukocytosis
Resolved
#Coronary artery disease
s/p 4 MIs, 2 stents, last stent placed in December 2024
Dual antiplatelet therapy
Continue metoprolol
He is on Repatha therapy
#Gout
Tophi on fingers and elbows
Continue allopurinol
#CKD 3a
Primary care doctor monitoring the kidney function
Hold losartan
And amlodipine
Kidney function stable at 1.6 with eGFR of 49.63 and creatinine clearance of 45
DVT prophylaxis�heparin subcu
CODE STATUS�full code
Anticipated Discharge: 24 - 48 hours
Subjective/Interval History
-
Date of Service: March 26, 2025
Patient seen and examined at bedside
Reports discomfort in left lower quadrant, remained afebrile, no other issues
No diarrhea
Objective Data
-
Labs:
Laboratory Results
03/26/25
05:23
WBC 6.3
Hgb 10.1 L
Hct 32.5 L
Plt Count 227
Sodium 139
Potassium 3.7
Chloride 111 H
Carbon Dioxide 22
BUN 16
Creatinine 1.6 H
Glucose 78
Calcium 8.6
Total Bilirubin 0.6
AST 23
ALT 22
Alkaline Phosphatase 67
Vital Signs:
Vital Signs
Temp Pulse Resp BP Pulse Ox
97.7 F 69 18 128/71 97
03/25/25 22:17 03/25/25 22:17 03/25/25 22:17 03/25/25 22:17 03/25/25 22:17
I&O
03/25/25 03/26/25 03/27/25
06:59 06:59 06:59
Intake Total 600 / 600
Balance 600 / 600
Review of Systems
-
All other systems: Reviewed and negative
Physical Exam
-
General: Well Developed, No Apparent Distress and Comfortable
Respiratory: Clear to Auscultation; Negative Wheezes, Rales or Rhonchi
Cardiac: Regular Rhythm and S1/S2; Negative Murmur, Rub or Gallop
GI: Soft and Tender (Mild tenderness in the left lower quadrant)
Musculoskeletal: No Clubbing, No Cyanosis, No Edema and Other (Tophi on fingers and elbows)
Skin: Warm and Dry
Neuro: Awake, AO x 3 and Nonfocal/Grossly Intact
Psych: Calm
[2025-03-26 07:34] VITALS: BP 128/67
[2025-03-26] MEDS: EFFIENT 10 MG PO (08:03)
[2025-03-26] MEDS: ZYLOPRIM 100 MG PO (08:03)
[2025-03-26] MEDS: ASPIR LOW (ENTERIC COATED) 81 MG PO (08:03)
[2025-03-26] MEDS: TOPROL XL 50 MG PO (08:03)
[2025-03-26] MEDS: NORVASC 10 MG PO (08:03)
--- NOTE | 2025-03-26 08:38 | W.PN.CRS1 ---
Today's Communication / Plan
-
fulls to low residue
blood cultures
Assessment/Plan
-
59-year-old male with PMH of CAD/MO (recently placed stent 2 months ago, on Effient and aspirin), HTN, HLD, CKD, gout, recurrent diverticulitis (first started 2 years ago, has been having 4 episodes per year; was recently admitted at [place] 1
month ago for diverticulitis associated with E. coli bacteremia) who presents for recurrent abdominal pain associated with nausea and vomiting and chills. WBC 12.1, CT showing acute diverticulitis with intramural abscess.
AFVSS, ABD soft, nondistended, mildly tender in the LLQ, no rebound or guarding
WBC 6.3 (10.6), Hgb 10.1, CRP 79 (109)
� Recurrent acute diverticulitis associated with intramural abscess; recent admission within 1 month for diverticulitis associated with bacteremia
� No acute surgical intervention currently indicated; recommend nonoperative measures with bowel rest and IVF; lengthy discussion regarding treatment options; patient has crescendoing diverticulitis, which would be best treated by sigmoidectomy
after resolution of the acute episode; surgery in the acute episode will more likely require a midline incision and ostomy; however, the patient has added risk involved with recent coronary stent requiring DAPT; if surgery is performed before it is
safe to hold the Effient, the patient will be at elevated risk for MO; the patient understood well
� Okay for fulls, advance to low residue later tonight if tolerating fulls
� Continue IV Zosyn; appreciate ID
� Pain control with Tylenol ATC, oxycodone and Dilaudid as needed
� Appreciate cardiology consult to discuss risk of holding DAPT and cardiac risk for surgery
� Appreciate hospitalist
- Blood cultures pending
Subjective Data
Subjective Data
Date of Service: March 26, 2025
Patient states he feels the 'same'. He is very hungry. He is having loose stools. Denies nausea or vomiting.
Objective Data
-
Vital Signs
Temp Pulse Resp BP Pulse Ox
97.6 F 66 17 128/67 96
03/26/25 07:34 03/26/25 08:03 03/26/25 07:34 03/26/25 08:03 03/26/25 07:34
Intake & Output
03/25/25 03/26/25 03/27/25
06:59 06:59 06:59
Intake Total 600 / 600
Balance 600 / 600
Intake:
Oral fluids 500 / 500
IV piggybacks 100 / 100
Other:
How many times incontinent 12
MODERATE amount urine
Number of approximated LARGE 1
amounts of urine
Lab Results
03/26/25 05:23
03/26/25 05:23
Physical Exam
-
General: No Acute Distress and AOx3
Abdomen: Soft, Non Distended and Tender (mild LLQ)
Skin: Warm and Dry
--- NOTE | 2025-03-26 10:06 | PN.CDI ---
CDI
- -
CDI:
Physician Documentation Request
Admit Date: 03/24/25 22:03
Dear Doctor Thony,
Please review the following and provide your response in the progress notes.
Clinical Indicators:
Pt admitted with Acute diverticulitis with intramural abscess.
PMHx includes CKD.
External Medical Summary: Problem Stage 3a chronic kidney disease N18.31 confirmed
Laboratory Tests
03/24/25 03/25/25 03/26/25
13:05 05:34 05:23
Creatinine 1.6 H 1.7 H 1.6 H
Estimated Creat Clear 43 45
Clarify which of the following accurately represents the patient's renal status:
____ - CKD, please provide stage - see criteria
____ - Other
Stages of Chronic Kidney Disease*
Level Description GFR
G1 Normal or High >90
G2 Mildly decreased 60-89
G3a Mildly to moderately decreased 45-59
G3b Moderately to severely decreased 30-44
G4 Severely decreased 15-29
G5 Kidney failure <15
Use of terms such as suspected, likely, concern for, or probable (associated with a specific diagnosis that is being evaluated, monitored, or treated as if it exists) are acceptable and can be coded in the inpatient setting, when documented at the
time of discharge.
Thank you,
Charity Potts RN, BSN
CDI Specialist
[place] [facility]
Please use your independent medical judgment in providing your response.
*Source: Kidney Disease: Improving Global Outcomes (KDIGO) 2012
--- NOTE | 2025-03-26 10:16 | PN.CDI ---
CDI
- -
CDI:
Physician Documentation Request
Admit Date: 03/24/25 22:03
Dear Doctor Thony,
Please review the following and provide your response in the progress notes.
Clinical Indicators:
Pt admitted with Acute diverticulitis with intramural abscess.
03/24 ER Note: ' Patient is a 59-year-old male with history CAD s/p stents who presents to the emergency department with 2 days of shaking chills now with vomiting, diarrhea, and lower abdominal pain....'
Selected Entries
03/24/25
12:57 03/24/25
17:05 03/24/25
23:16
Pulse 127 100 97
Laboratory Tests
03/24/25
13:05
WBC 12.1 H
Please clarify which of the following most accurately describes the status of the patient's infection:
Sepsis
- Systemic manifestations of infection, with 2 or more SIRS criteria which include:
- Fever >100.9 degrees F or hypothermia < 96.8 degrees F
- Leukocytosis - WBC > 12,000 or leukopenia - WBC < 4,000 or > 10% bands
- Tachycardia > 90 beats per minute
- Tachypnea - RR > 20 breaths per minute or PaCO2 , 32mmHg
Source: Merck Manual 2012
- Indicate the known or suspected organism
- Indicate if a suspected bacterial infection of unknown source
Acute diverticulitis with intramural abscess Only, Without Systemic Illness
Other
Use of terms such as suspected, likely, concern for, or probable (associated with a specific diagnosis that is being evaluated, monitored, or treated as if it exists) are acceptable and can be coded in the inpatient setting, when documented at the
time of discharge.
Thank you,
Charity Potts RN, BSN
CDI Specialist
[place] [facility]
Please use your independent medical judgment in providing your response.
[2025-03-26] MEDS: LR IV (10:52)
--- NOTE | 2025-03-26 14:22 | PTOTSP ---
Chart reviewed, spoke with patient. Patient admitted for colitis, denies changes in or issues with his mobility, noting that he recently walked two laps in the hallway. Patient agreeable to PT signing off and is aware we are available if needs arise.
--- NOTE | 2025-03-26 14:54 | W.PN.ID1 ---
Date of Service
Date of Service: March 26, 2025
Today's Communication
Continue antibiotics. Transition to once daily ertapenem.
Assessment / Plan
Acute diverticulitis
Diverticular abscess (intramural)
Leukocytosis
CAD; Hx recent [place] (2 months ago in [place])
HTN
HLD
CKD stage IIIb
Tophaceous gout
Recommendations:
Patient has been evaluated by CRS. No surgery planned in the near future.
Continue with antibiotic therapy. Will likely need 2 to 3 weeks of IV antibiotics in order to calm down and adequately treat the intramural abscess.
In anticipation of home IV antibiotics therapy, will transition to once daily or ertapenem.
Home infusion sheet completed and placed on paper chart.
PICC line once patient nears discharge.
Will follow weekly labs including BMP and CBC.
����������������������������������������������������������
Chief Complaint
-: Other (Diverticulitis with abscess)
Subjective / Review of Systems
Patient seen and examined. Reports mild abdominal discomfort, but overall feels well.
Review of Systems: No Fever and No Chills
Vital Signs / Physical Exam
Vital Signs
Vital Signs
Temp Pulse Resp BP Pulse Ox
97.6 F 66 17 128/67 96
03/26/25 07:34 03/26/25 08:03 03/26/25 07:34 03/26/25 08:03 03/26/25 09:00
Physical Exam
Constitutional: No Acute Distress, Well Developed, Comfortable and Non-toxic
Eyes: Sclera Anicteric
Cardiovascular: S1/S2; Negative S3/S4
Pulmonary: Non Labored
Gastrointestinal: Soft, Tender (minimal), Non Distended and Normal Bowel Sounds
Extremities: Negative Edema, Cyanosis or Erythema
Neurological: Awake and Alert
Psychological: Calm
Objective Data
Lab Data
Lab Results
03/26/25 05:23
03/26/25 05:23
Estimated Creat Clear 45 ml/min 03/26/25 05:23
Lactic Acid Cancelled 03/24/25 21:30
Total Bilirubin 0.6 mg/dl (0.2-1.3) 03/26/25 05:23
AST 23 U/L (17-59) 03/26/25 05:23
ALT 22 U/L (0-50) 03/26/25 05:23
Alkaline Phosphatase 67 U/L (38-126) 03/26/25 05:23
C-Reactive Protein 79.40 mg/L (0.0-10.00) H 03/26/25 05:23
Most recent labs reviewed.
Micro Results:
03/26/25 10:19 Blood Culture - Pending
Blood/Venous
03/26/25 09:39 Blood Culture - Pending
Blood/Venous
03/24/25 18:25 Blood Culture - Preliminary
Blood/Venous Positive culture in progress
Gram Stain - Preliminary
03/25/25 15:17 Salmonella/Shigella Culture - Preliminary
Feces/Stool Culture in Progress
Campylobacter Culture - Preliminary
Culture in Progress
Shiga Toxin Test - Pending
03/24/25 18:25 Blood Culture - Preliminary
Blood/Venous No Growth in 24 hours- Final report to follow
03/25/25 15:17 C. difficile GDH Antigen & Toxins - Final
Feces/Stool C. difficile antigen positive, toxin negative.
Clostridium difficile present, but toxin not detected.
Patient may be a carrier, colonized with nontoxinogenic
strain or the level of toxin in sample is below detection
limits. This information should be used in conjunction with
the patient's clinical history.
03/24/25 13:05 Influenza Types A & B (GABRIELLE) - Final
Nasal Swab Negative for Influenza A & B, NAAT
Negative results must be combined with clinical observations
and patient history.
Nucleic Acid Amplification test (NAAT)performed on the
[employer] platform.
Imaging:
03/24/2025 CT abdomen/pelvis with contrast: CT findings compatible with diverticulitis involving the distal descending colon and sigmoid colon. In the left anterolateral pelvis, there is an approximately 12 cm long segment of moderate severe wall
thickening involving the distal descending colon and superior sigmoid colon. Significant stranding of the adjacent fat. Findings are compatible with colitis, most likely diverticulitis with scattered diverticula are present involving the descending
colon and superior sigmoid colon. Additionally, in the anterior and superior wall of the involved segment, there is a focal predominantly fluid collection with a thickened enhancing border, also containing small foci of air. The appearance is
compatible with an intramural abscess, probably best seen on sagittal image 48 of series 203. This intramural abscess measures 3.5 cm AP by 1.9 cm transverse by 2.3 cm craniocaudal.
[2025-03-26 15:37] VITALS: BP 108/61
[2025-03-26] MEDS: INVANZ 60 MG IV (16:19)
[2025-03-26 23:32] VITALS: BP 132/77
[2025-03-27] MEDS: TYLENOL PO ×3 (00:04→23:44)
[2025-03-27 06:38] LABS: Hematocrit 33.3 % (39.0-52.0); Hemoglobin 10.5 g/dL (13.0-18.0); Mean Corp Hgb Conc. 31.5 g/dL (33.0-37.0); Mean Corpuscular Volume 82.8 fL (80.0-94.0); Nucleated Red Blood Cells % 0 % (-); Platelet Count 259 10^3/uL (130-400); Red Cell Dist. Width 15.9 % (11.5-14.5)
[2025-03-27 07:05] LABS: ALT (SGPT) 24 U/L (0-50); AST (SGOT) 22 U/L (17-59); Albumin 3.4 g/dl (3.5-5.0); Alkaline Phosphatase 87 U/L (38-126); Blood Urea Nitrogen 11 mg/dl (9-20); Calcium 8.5 mg/dl (8.4-10.2); Carbon Dioxide 22 mmol/L (22-30); Chloride 109 mmol/L (98-107); Estimated Creatinine Clearance 52 ml/min; Glucose 90 mg/dl (70-99); Magnesium 2.0 mg/dl (1.6-2.3); Potassium 3.6 mmol/L (3.5-5.1); Sodium 138 mmol/L (135-145); Total Protein 6.1 g/dl (6.3-8.2); eGFR 58.26
[2025-03-27 07:09] LABS: C-Reactive Protein 59.70 mg/L (0.0-10.00)
--- NOTE | 2025-03-27 08:08 | W.PN.HOSP.TC ---
Addendum entered and electronically signed by Greyson Bhandari MD 03/27/25 13:08:
Gram-positive bacteremia which could be a contaminant or could be translocation with colonic abscess present
Await speciation and sensitivities
Repeat blood cultures
2D echocardiogram ordered
ID started ertapenem
Acute diverticulitis with abscess
Colorectal surgery
I ordered concern if plan for drain then potential risk for increased translocation
IV antibiotics
IV fluids
Clear liquid diet
Advance as tolerated
CAD s/p [place], PCI in December
Continue DAPT
Continue beta-blockers
Continue monoclonal Repatha
Gout, chronic, Tophi
Continue allopurinol
I personally reviewed and evaluated this patient with the resident. I agree with above unless if otherwise stated below.
I personally reviewed labs and imaging resourcing consultant notes case management note
Original Note:
Today's Communication/Plan
-
Continue to monitor blood cultures for any growth, WBC and temperature charting
Assessment / Plan
Assessment / Plan
59-year-old male with past medical history significant for CAD status post stenting, hypertension, hyperlipidemia, gout, CKD presented with fever, chills and abdominal pain for last 3 days.
Yesterday he started having chills and the pain got worse that is why he presented to the ER.
In the emergency department here he was afebrile, blood pressure was 110/54, pulse of 84 oxygen saturation of 98% on room air.WBC of 12.1, hemoglobin 10.9 platelet 300. BUN and creatinine with a 23 and 1.6 with a bicarb of 16.
CT of the abdomen pelvis showed findings compatible with diverticulitis involving the distal descending colon and sigmoid colon. There is evidence for intramural abscess.
As per the patient, he had CABG done in December 2024 about 2 months ago in [place]. He was admitted in [facility] for an episode of diverticulitis, with bacteremia. Surgery was suggested for perforated bowel but due to his recent CABG it was
not done. He remained in hospital for 8 days and then took antibiotics for another 5 days at home.
Colorectal surgery consulted regarding the intramural abscess.
Assessment/plan
# Sepsis secondary to complicated acute diverticulitis with intramural abscess
Patient fulfilled criteria of sepsis on admission with chills, leukocytosis, tachycardia and low grade fever
Leukocytosis resolved
Hemoglobin stable
Bowel rest, IVF and pain management and started on clears per colorectal
Colorectal surgery consult appreciated-no acute surgical intervention, recommend nonoperative measures
Recurrent diverticulitis episodes from 2 years, 4 episodes per year, recently admitted to [place] 1 month ago diverticulitis with bacteremia
Best treatment option sigmoidectomy after resolution of acute episode
IRAD consult appreciated-abscess is too small to be drained
Infectious disease recommendations appreciated-continue empiric Zosyn, follow blood cultures
Blood cultures from 03/24-reveals gram-positive cocci in chains and pairs-ID following- Changed antibiotic to ertapenem
Repeat blood cultures from 03/26/2025-revealed no growth in last 24 hours
Stool culture pending
Patient on low residue diet
# Leukocytosis
Resolved
#Coronary artery disease
s/p 4 MIs, 2 stents, last stent placed in December 2024
Dual antiplatelet therapy
Continue metoprolol
He is on Repatha therapy
#Gout
Tophi on fingers and elbows
Continue allopurinol
#CKD 3a
Primary care doctor monitoring the kidney function
Hold losartan
And amlodipine
Kidney function stable at 1.6 with eGFR of 49.63 and creatinine clearance of 45
DVT prophylaxis�heparin subcu
CODE STATUS�full code
Anticipated Discharge: 24 - 48 hours
Subjective/Interval History
-
Date of Service: March 27, 2025
Patient seen and examined at bedside
Feeling better, mild discomfort in left lower quadrant
Objective Data
-
Labs:
Laboratory Results
03/27/25
05:57
WBC 5.2
Hgb 10.5 L
Hct 33.3 L
Plt Count 259
Sodium 138
Potassium 3.6
Chloride 109 H
Carbon Dioxide 22
BUN 11
Creatinine 1.4 H
Glucose 90
Calcium 8.5
Total Bilirubin 0.3
AST 22
ALT 24
Alkaline Phosphatase 87
Vital Signs:
Vital Signs
Temp Pulse Resp BP Pulse Ox
98.6 F 75 18 132/77 95
03/26/25 23:32 03/26/25 23:32 03/26/25 23:32 03/26/25 23:32 03/26/25 23:32
I&O
03/26/25 03/27/25 03/28/25
06:59 06:59 06:59
Intake Total 600 / 600 720 / 720
Balance 600 / 600 720 / 720
Review of Systems
-
All other systems: Reviewed and negative
Physical Exam
-
General: Well Developed, Well Nourished and No Apparent Distress
HEENT: Normocephalic, Atraumatic, Moist Mucous Membranes, Anicteric and Stearns Conjunctivae
Respiratory: Clear to Auscultation; Negative Wheezes, Rales or Rhonchi
Cardiac: Regular Rhythm and S1/S2
GI: Soft, Normal Bowel Sounds and Tender (Mildly tender in the left lower quadrant)
Musculoskeletal: No Clubbing, No Cyanosis and No Edema
Skin: Warm and Dry
Neuro: Awake, AO x 3 and No Motor Deficits
Psych: Calm
[2025-03-27 08:15] VITALS: BP 138/74
[2025-03-27] MEDS: NORVASC 10 MG PO (09:15)
[2025-03-27] MEDS: ZYLOPRIM 100 MG PO (09:15)
[2025-03-27] MEDS: TOPROL XL 50 MG PO (09:15)
[2025-03-27] MEDS: ASPIR LOW (ENTERIC COATED) 81 MG PO (09:15)
[2025-03-27] MEDS: HEPARIN SC ×4 (09:16→23:06)
[2025-03-27] MEDS: EFFIENT 10 MG PO (09:18)
[2025-03-27] MEDS: TYLENOL 1000 MG PO ×2 (12:24→17:58)
--- NOTE | 2025-03-27 12:31 | W.PN.ID1 ---
Date of Service
Date of Service: March 27, 2025
Today's Communication
Continue ertapenem.
Follow blood cx's.
Assessment / Plan
Acute diverticulitis
Diverticular abscess (intramural)
GPC chains bacteremia 1 of 4 bottles (anaerobic bottle)
Leukocytosis
CAD; Hx recent [place] (2 months ago in [place])
HTN
HLD
CKD stage IIIb
Tophaceous gout
Recommendations:
Patient has been evaluated by CRS. No surgery planned in the near future.
Continue with antibiotic therapy. Will likely need 2 to 3 weeks of IV antibiotics in order to calm down and adequately treat the intramural abscess.
In anticipation of home IV antibiotics therapy, continue once daily or ertapenem.
Home infusion sheet completed and placed on paper chart.
Follow repeat blood cx's.
PICC line once patient nears discharge.
Will follow weekly labs including BMP and CBC.
����������������������������������������������������������
Chief Complaint
-: Other (Diverticulitis with abscess)
Subjective / Review of Systems
Improving abd pain.
Vital Signs / Physical Exam
Vital Signs
Vital Signs
Temp Pulse Resp BP Pulse Ox
97.8 F 80 16 138/74 96
03/27/25 08:15 03/27/25 08:15 03/27/25 08:15 03/27/25 08:15 03/27/25 08:15
Physical Exam
Constitutional: No Acute Distress
Cardiovascular: Regular Rate and S1/S2
Pulmonary: Clear
Gastrointestinal: Soft, Tender (mild LLQ), Non Distended and Normal Bowel Sounds
Extremities: Negative Edema
Neurological: AO x 3
Objective Data
Lab Data
Lab Results
03/27/25 05:57
03/27/25 05:57
Estimated Creat Clear 52 ml/min 03/27/25 05:57
Lactic Acid Cancelled 03/24/25 21:30
Total Bilirubin 0.3 mg/dl (0.2-1.3) 03/27/25 05:57
AST 22 U/L (17-59) 03/27/25 05:57
ALT 24 U/L (0-50) 03/27/25 05:57
Alkaline Phosphatase 87 U/L (38-126) 03/27/25 05:57
C-Reactive Protein 59.70 mg/L (0.0-10.00) H 03/27/25 05:57
Most recent labs reviewed.
Micro Results:
03/24/25 18:25 Blood Culture - Preliminary
Blood/Venous Positive culture in progress
Gram Stain - Preliminary
03/26/25 10:19 Blood Culture - Preliminary
Blood/Venous No Growth in 24 hours- Final report to follow
03/26/25 09:39 Blood Culture - Preliminary
Blood/Venous No Growth in 24 hours- Final report to follow
03/25/25 15:17 Salmonella/Shigella Culture - Final
Feces/Stool No Salmonella, Shigella, Aeromonas or Plesiomonas species
isolated.
Campylobacter Culture - Final
No Campylobacter species isolated.
Shiga Toxin Test - Pending
03/24/25 18:25 Blood Culture - Preliminary
Blood/Venous No Growth in 48 hours- Final report to follow
03/25/25 15:17 C. difficile GDH Antigen & Toxins - Final
Feces/Stool C. difficile antigen positive, toxin negative.
Clostridium difficile present, but toxin not detected.
Patient may be a carrier, colonized with nontoxinogenic
strain or the level of toxin in sample is below detection
limits. This information should be used in conjunction with
the patient's clinical history.
03/24/25 13:05 Influenza Types A & B (GABRIELLE) - Final
Nasal Swab Negative for Influenza A & B, NAAT
Negative results must be combined with clinical observations
and patient history.
Nucleic Acid Amplification test (NAAT)performed on the
[employer] platform.
Imaging:
03/24/2025 CT abdomen/pelvis with contrast: CT findings compatible with diverticulitis involving the distal descending colon and sigmoid colon. In the left anterolateral pelvis, there is an approximately 12 cm long segment of moderate severe wall
thickening involving the distal descending colon and superior sigmoid colon. Significant stranding of the adjacent fat. Findings are compatible with colitis, most likely diverticulitis with scattered diverticula are present involving the descending
colon and superior sigmoid colon. Additionally, in the anterior and superior wall of the involved segment, there is a focal predominantly fluid collection with a thickened enhancing border, also containing small foci of air. The appearance is
compatible with an intramural abscess, probably best seen on sagittal image 48 of series 203. This intramural abscess measures 3.5 cm AP by 1.9 cm transverse by 2.3 cm craniocaudal.
--- NOTE | 2025-03-27 13:16 | W.PN.CRS1 ---
Today's Communication / Plan
-
IV abx being arranged
Continue LRD
Assessment/Plan
-
59-year-old male with PMH of CAD/MD (recently placed stent 2 months ago, on Effient and aspirin), HTN, HLD, CKD, gout, recurrent diverticulitis (first started 2 years ago, has been having 4 episodes per year; was recently admitted at [facility] 1
month ago for diverticulitis associated with E. coli bacteremia) who presented for recurrent diverticulitis with intramural abscess
AFVSS
Blood cx positive x / for gram + cocci
No leukocytosis
CRP continues trending down
Plan:
- Continue LRD
� Continue IV Invanz; appreciate ID. Will likely need 2 to 3 weeks of IV antibiotics
� Pain control with Tylenol ATC, oxycodone and Dilaudid as needed
- OP cardiology follow up
- No emergent surgery planned at this time
� Appreciate hospitalist
CRS will follow peripherally, please call with questions/concerns. Will plan outpatient follow up for continued management after discharge. Would recommend eventual surgery in the elective setting once cleared by cardiology to be off DAPT
Subjective Data
Subjective Data
Date of Service: March 27, 2025
Pt seen and examined at bedside with Dr. Cuellar. Denies n/v. Tolerating dietary advancements. Passing gas and had a bm. Denies pain.
Objective Data
-
Vital Signs
Temp Pulse Resp BP Pulse Ox
97.8 F 80 16 138/74 96
03/27/25 08:15 03/27/25 08:15 03/27/25 08:15 03/27/25 08:15 03/27/25 08:15
Intake & Output
03/26/25 03/27/25 03/28/25
06:59 06:59 06:59
Intake Total 600 / 600 720 / 720
Balance 600 / 600 720 / 720
Intake:
Oral fluids 500 / 500 720 / 720
IV piggybacks 100 / 100
Other:
How many times incontinent 12
MODERATE amount urine
Number of approximated MODERATE 4
amounts of urine
Number of approximated LARGE 1
amounts of urine
Lab Results
03/27/25 05:57
03/27/25 05:57
Physical Exam
-
General: No Acute Distress and AOx3
Abdomen: Soft, Non Distended and Non Tender
Skin: Warm and Dry
[2025-03-27 15:04] VITALS: BP 127/76
[2025-03-27] MEDS: INVANZ 60 MG IV (15:59)
--- NOTE | 2025-03-27 16:15 | CM ---
Patient seen at bedside
IA completed
Lives alone in a 2 story home, 2 LAM, flight to bed/bathroom
PLOF: Independent
Denies DME
Denies VN/REHAB
PT/OT eval-no needs
pcp: [facility], Dr. Ball
Pharmacy: [facility]
PLAN: Home, no needs when stable
friend to transport
[2025-03-27 23:21] VITALS: BP 115/56
[2025-03-28] MEDS: TYLENOL PO ×3 (05:59→17:09)
[2025-03-28 06:08] LABS: Hematocrit 34.2 % (39.0-52.0); Hemoglobin 11.1 g/dL (13.0-18.0); Mean Corp Hgb Conc. 32.5 g/dL (33.0-37.0); Mean Corpuscular Volume 80.9 fL (80.0-94.0); Nucleated Red Blood Cells % 0 % (-); Platelet Count 272 10^3/uL (130-400); Red Cell Dist. Width 15.9 % (11.5-14.5)
[2025-03-28 06:31] LABS: C-Reactive Protein 32.90 mg/L (0.0-10.00)
[2025-03-28 07:10] LABS: Blood Urea Nitrogen 11 mg/dl (9-20); Carbon Dioxide 23 mmol/L (22-30); Chloride 111 mmol/L (98-107); Estimated Creatinine Clearance 52 ml/min; Glucose 90 mg/dl (70-99); Potassium 3.8 mmol/L (3.5-5.1); Sodium 140 mmol/L (135-145); eGFR 58.26
[2025-03-28 07:11] LABS: ALT (SGPT) 32 U/L (0-50); AST (SGOT) 32 U/L (17-59); Albumin 3.5 g/dl (3.5-5.0); Calcium 8.7 mg/dl (8.4-10.2); Magnesium 2.1 mg/dl (1.6-2.3)
[2025-03-28 07:12] LABS: Alkaline Phosphatase 95 U/L (38-126)
[2025-03-28 07:13] LABS: Total Protein 6.2 g/dl (6.3-8.2)
[2025-03-28 08:08] VITALS: BP 134/75
[2025-03-28] MEDS: HEPARIN SC ×2 (08:48→16:05)
[2025-03-28] MEDS: EFFIENT 10 MG PO (08:48)
[2025-03-28] MEDS: TOPROL XL 50 MG PO (08:48)
[2025-03-28] MEDS: NORVASC 10 MG PO (08:48)
[2025-03-28] MEDS: ZYLOPRIM 100 MG PO (08:48)
[2025-03-28] MEDS: ASPIR LOW (ENTERIC COATED) 81 MG PO (08:48)
--- NOTE | 2025-03-28 09:14 | W.PN.HOSP.TC ---
Addendum entered and electronically signed by Greyson Bhandari MD 03/28/25 13:10:
Gram-positive bacteremia which could be a contaminant or could be translocation with colonic abscess present
Await speciation and sensitivities
Repeat blood cultures
2D echocardiogram ordered
ID started ertapenem
Home infusion set up
Picc line ordered for 03/29
Acute diverticulitis with abscess
Colorectal surgery
I ordered concern if plan for drain then potential risk for increased translocation
IV antibiotics
IV fluids
Clear liquid diet
Advance as tolerated
CAD s/p [place], PCI in December
Continue DAPT
Continue beta-blockers
Continue monoclonal Repatha
Gout, chronic, Tophi
Continue allopurinol
I personally reviewed and evaluated this patient with the resident. I agree with above unless if otherwise stated below.
I personally reviewed labs and imaging baby registry sales consultant notes case management note
Original Note:
Today's Communication/Plan
-
PICC line in a.m.
Plan discharge on IV antibiotic
Assessment / Plan
Assessment / Plan
59-year-old male with past medical history significant for CAD status post stenting, hypertension, hyperlipidemia, gout, CKD presented with fever, chills and abdominal pain for last 3 days.
Yesterday he started having chills and the pain got worse that is why he presented to the ER.
In the emergency department here he was afebrile, blood pressure was 110/54, pulse of 84 oxygen saturation of 98% on room air.WBC of 12.1, hemoglobin 10.9 platelet 300. BUN and creatinine with a 23 and 1.6 with a bicarb of 16.
CT of the abdomen pelvis showed findings compatible with diverticulitis involving the distal descending colon and sigmoid colon. There is evidence for intramural abscess.
As per the patient, he had CABG done in December 2024 about 2 months ago in [place]. He was admitted in [facility] for an episode of diverticulitis, with bacteremia. Surgery was suggested for perforated bowel but due to his recent CABG it was
not done. He remained in hospital for 8 days and then took antibiotics for another 5 days at home.
Colorectal surgery consulted regarding the intramural abscess.
Assessment/plan
# Sepsis secondary to complicated acute diverticulitis with intramural abscess
Patient fulfilled criteria of sepsis on admission with chills, leukocytosis, tachycardia and low grade fever
Leukocytosis resolved
Hemoglobin stable
Bowel rest, IVF and pain management and started on clears per colorectal
Colorectal surgery consult appreciated-no acute surgical intervention, recommend nonoperative measures
Recurrent diverticulitis episodes from 2 years, 4 episodes per year, recently admitted to [place] 1 month ago diverticulitis with bacteremia
Best treatment option sigmoidectomy after resolution of acute episode
IRAD consult appreciated-abscess is too small to be drained
Infectious disease recommendations appreciated-continue empiric Zosyn, follow blood cultures
Blood cultures from 03/24-reveals gram-positive cocci in chains and pairs-ID following- 1 out of 4 bottles-Changed antibiotic to ertapenem-Will likely need 2 to 3 weeks of IV antibiotics in order to calm down and adequately treat the intramural
abscess
Plan to do PICC line tomorrow and discharged on IV antibiotics
Repeat blood cultures from 03/26/2025-revealed no growth in last 48 hours
Stool culture negative
Patient on low residue diet
# Leukocytosis
Resolved
#Coronary artery disease
s/p 4 MIs, 2 stents, last stent placed in December 2024
Dual antiplatelet therapy
Continue metoprolol
He is on Repatha therapy
#Gout
Tophi on fingers and elbows
Continue allopurinol
#CKD 3a
Primary care doctor monitoring the kidney function
Hold losartan
And amlodipine
Kidney function stable at 1.6 with eGFR of 49.63 and creatinine clearance of 45
DVT prophylaxis�heparin subcu
CODE STATUS�full code
Anticipated Discharge: 24 - 48 hours
Subjective/Interval History
-
Date of Service: March 28, 2025
Objective Data
-
Labs:
Laboratory Results
03/28/25 03/28/25
05:12 06:39
WBC 4.9
Hgb 11.1 L
Hct 34.2 L
Plt Count 272
Sodium 140 Cancelled
Potassium 3.8 Cancelled
Chloride 111 H Cancelled
Carbon Dioxide 23 Cancelled
BUN 11 Cancelled
Creatinine 1.4 H Cancelled
Glucose 90 Cancelled
Calcium 8.7 Cancelled
Total Bilirubin 0.2 Cancelled
AST 32 Cancelled
ALT 32 Cancelled
Alkaline Phosphatase 95 Cancelled
Vital Signs:
Vital Signs
Temp Pulse Resp BP Pulse Ox
98.2 F 73 18 134/75 93
03/28/25 08:08 03/28/25 08:08 03/28/25 08:08 03/28/25 08:08 03/28/25 08:08
I&O
03/27/25 03/28/25 03/29/25
06:59 06:59 06:59
Intake Total 720 / 720 60 / 60
Balance 720 / 720 60 / 60
Physical Exam
-
General: Well Developed, Well Nourished and No Apparent Distress
HEENT: Moist Mucous Membranes and Anicteric
Respiratory: Clear to Auscultation; Negative Wheezes, Rales or Rhonchi
Cardiac: Regular Rhythm and S1/S2
GI: Soft, Normal Bowel Sounds and Tender (Mild tenderness in left lower quadrant)
Musculoskeletal: No Clubbing, No Cyanosis and No Edema
Skin: Warm and Dry
Neuro: Awake, Oriented and Nonfocal/Grossly Intact
Psych: Calm
--- NOTE | 2025-03-28 12:34 | CM ---
Patient seen at bedside
tt from Dr. Lopez - patient will need IV abx & midline to be placed
script was in chart in red folder - IV Ertapenem 1 gm IV Q24h end date 03/18/25
[facility] reviewed - Faxed ([phone]) face sheet/clinicals sent to [facility] for benefit check - LM with Tiffany at [facility]
No PT/OT needs
PLAN: home with IV antibiotics, once confirmed & set up
[2025-03-28] MEDS: INVANZ 60 MG IV (15:58)
[2025-03-28 16:11] VITALS: BP 128/72
[2025-03-28 23:47] VITALS: BP 133/77
[2025-03-29] MEDS: HEPARIN 5000 UNITS SC (00:01)
[2025-03-29 04:42] LABS: Hematocrit 33.9 % (39.0-52.0); Hemoglobin 10.8 g/dL (13.0-18.0); Mean Corp Hgb Conc. 31.9 g/dL (33.0-37.0); Mean Corpuscular Volume 80.3 fL (80.0-94.0); Nucleated Red Blood Cells % 0 % (-); Red Cell Dist. Width 16.2 % (11.5-14.5)
[2025-03-29 04:47] LABS: ALT (SGPT) 52 U/L (0-50); AST (SGOT) 50 U/L (17-59); Albumin 3.4 g/dl (3.5-5.0); Alkaline Phosphatase 99 U/L (38-126); Blood Urea Nitrogen 14 mg/dl (9-20); Calcium 8.9 mg/dl (8.4-10.2); Carbon Dioxide 23 mmol/L (22-30); Chloride 113 mmol/L (98-107); Estimated Creatinine Clearance 52 ml/min; Glucose 97 mg/dl (70-99); Magnesium 2.0 mg/dl (1.6-2.3); Potassium 4.1 mmol/L (3.5-5.1); Sodium 142 mmol/L (135-145); Total Protein 6.2 g/dl (6.3-8.2); eGFR 58.26
[2025-03-29] MEDS: TYLENOL PO (05:40)
[2025-03-29 05:43] LABS: Platelet Count 258 10^3/uL (130-400)
[2025-03-29 07:40] VITALS: BP 131/82
[2025-03-29] MEDS: HEPARIN SC (07:52)
[2025-03-29] MEDS: NORVASC 10 MG PO (07:52)
[2025-03-29] MEDS: EFFIENT 10 MG PO (07:52)
[2025-03-29] MEDS: ZYLOPRIM 100 MG PO (07:52)
[2025-03-29] MEDS: ASPIR LOW (ENTERIC COATED) 81 MG PO (07:52)
[2025-03-29] MEDS: ROXICODONE 5 MG PO (08:00)
--- NOTE | 2025-03-29 08:06 | W.PN.HOSP.TC ---
Addendum entered and electronically signed by Randall Doshi MD 03/29/25 13:38:
Attending�addendum:
I�saw�and�evaluated�the�patient.�I�reviewed�the�resident�s�note�and�agree�with�findings�and�plan�as�documented�in�the�resident�s�note.��
�patient seen and examined at bedside, denies any chest pain or shortness of breath, no abdominal pain, no nausea, no vomiting, no diarrhea or constipation.
Physical�exam:
GENERAL : Patient is awake, alert, oriented x3
HEENT: Nonicteric sclerae, PERRLA, EOMI. Oropharynx clear. Moist mucous membranes. Conjunctivae appear well perfused.
CHEST: Chest wall is nontender.
HEART: Regular rate and rhythm without murmurs.
LUNGS: Clear to auscultation bilaterally.
ABDOMEN: Soft, positive bowel sounds, nontender, no organomegaly.
RECTAL: Deferred.
SKIN: No rash, no excessive bruising, petechiae, or purpura.
NEUROLOGIC: Cranial nerves II-XII intact without motor/sensory deficit.
�
Assessment/plan:
Sepsis secondary to complicated acute diverticulitis with intramural abscess.
Will be discharged today on IV ertapenem for 3 weeks.
Follow-up with surgery as outpatient
History of coronary artery disease.
No chest pain
Chronic kidney disease stage IIIa.
Stable kidney function.
Okay for discharge
CODE STATUS: Full code
DVT prophylaxis: Hep
Diet: Low residual diet
Disposition: Discharge home today
�
Total�time�spent�on�today�s�encounter�was�50�minutes�which�included�time�spent�in�counseling�the�patient/family�regarding�diagnosis�and�treatment�plan�as�listed�above,�goals�of�care,�and�symptom�management.�Case�was�discussed�with�nursing�staff,�spec
ialists,�and�care�coordinators/case�management.�All�labs�and�imaging�personally�reviewed�by�me.�Remainder�the�time�spent�in�detailed�review�of�previous�records,�lab�data,�imaging,�and�other�medical�provider�documentation.
Original Note:
Today's Communication/Plan
-
Discharge on IV antibiotics
Follow CBC and BMP weekly
Follow-up with PCP
Assessment / Plan
Assessment / Plan
59-year-old male with past medical history significant for CAD status post stenting, hypertension, hyperlipidemia, gout, CKD presented with fever, chills and abdominal pain for last 3 days.
Yesterday he started having chills and the pain got worse that is why he presented to the ER.
In the emergency department here he was afebrile, blood pressure was 110/54, pulse of 84 oxygen saturation of 98% on room air.WBC of 12.1, hemoglobin 10.9 platelet 300. BUN and creatinine with a 23 and 1.6 with a bicarb of 16.
CT of the abdomen pelvis showed findings compatible with diverticulitis involving the distal descending colon and sigmoid colon. There is evidence for intramural abscess.
As per the patient, he had CABG done in December 2024 about 2 months ago in [place]. He was admitted in [facility] for an episode of diverticulitis, with bacteremia. Surgery was suggested for perforated bowel but due to his recent CABG it was
not done. He remained in hospital for 8 days and then took antibiotics for another 5 days at home.
Colorectal surgery consulted regarding the intramural abscess.
Assessment/plan
# Sepsis secondary to complicated acute diverticulitis with intramural abscess
Patient fulfilled criteria of sepsis on admission with chills, leukocytosis, tachycardia and low grade fever
Leukocytosis resolved
Hemoglobin stable
Bowel rest, IVF and pain management and started on clears per colorectal
Colorectal surgery consult appreciated-no acute surgical intervention, recommend nonoperative measures
Recurrent diverticulitis episodes from 2 years, 4 episodes per year, recently admitted to [place] 1 month ago diverticulitis with bacteremia
Best treatment option sigmoidectomy after resolution of acute episode
IRAD consult appreciated-abscess is too small to be drained
Infectious disease recommendations appreciated-continue empiric Zosyn, follow blood cultures
Blood cultures from 03/24-reveals gram-positive cocci in chains and pairs-ID following- 1 out of 4 bottles-Changed antibiotic to ertapenem-Will likely need 2 to 3 weeks of IV antibiotics in order to calm down and adequately treat the intramural
abscess
Plan to do midline today and discharge on IV antibiotics
Repeat blood cultures from 03/26/2025-revealed no growth in last 72 hours
Stool culture negative
Patient on low residue diet
# Leukocytosis
Resolved
#Coronary artery disease
s/p 4 MIs, 2 stents, last stent placed in December 2024
Dual antiplatelet therapy
Continue metoprolol
He is on Repatha therapy
#Gout
Tophi on fingers and elbows
Continue allopurinol
#CKD 3a
Primary care doctor monitoring the kidney function
Hold losartan
And amlodipine
Kidney function stable at 1.6 with eGFR of 49.63 and creatinine clearance of 45
DVT prophylaxis�heparin subcu
CODE STATUS�full code
Anticipated Discharge: Today
Subjective/Interval History
-
Date of Service: March 29, 2025
Patient seen and examined at bedside
Denies any abdominal pain, nausea, vomiting, fever or chills
Objective Data
-
Labs:
Laboratory Results
03/29/25
04:05
WBC 5.7
Hgb 10.8 L
Hct 33.9 L
Plt Count 258
Sodium 142
Potassium 4.1
Chloride 113 H
Carbon Dioxide 23
BUN 14
Creatinine 1.4 H
Glucose 97
Calcium 8.9
Total Bilirubin 0.3
AST 50
ALT 52 H
Alkaline Phosphatase 99
Vital Signs:
Vital Signs
Temp Pulse Resp BP Pulse Ox
98.2 F 81 17 131/82 95
03/29/25 07:40 03/29/25 07:40 03/29/25 07:40 03/29/25 07:40 03/29/25 07:40
I&O
03/28/25 03/29/25 03/30/25
06:59 06:59 06:59
Intake Total 60 / 60 60 / 60
Balance 60 / 60 60 / 60
Review of Systems
-
All other systems: Reviewed and negative
Physical Exam
-
General: Well Developed, Well Nourished and No Apparent Distress
HEENT: Normocephalic, Atraumatic, Moist Mucous Membranes, Anicteric and [place] Conjunctivae
Respiratory: Clear to Auscultation; Negative Wheezes, Rales or Rhonchi
Cardiac: Regular Rhythm and S1/S2
GI: Soft, Nontender and Normal Bowel Sounds
Musculoskeletal: No Clubbing, No Cyanosis and No Edema
Skin: Warm and Dry
Neuro: Awake, AO x 3 and No Motor Deficits
Psych: Calm
[2025-03-29] MEDS: TOPROL XL 50 MG PO (09:07)
--- NOTE | 2025-03-29 10:44 | CM ---
Call placed to Tiffany at [facility] to confirm start of care today and obtain pt's cost. Pt is covered 100% for IV abx.
Midline report sent via fax.
Plan: Discharge to home today with IV abx via [facility]. Tiffany with [facility] will meet with Milton alberto today to provide education prior to discharge.
--- NOTE | 2025-03-29 11:09 | W.PN.CRS1 ---
Today's Communication / Plan
-
continue diet
discharge
f/u with Dr. Salinas as an outpatient
Assessment/Plan
-
59-year-old male with PMH of CAD/PA (recently placed stent 2 months ago, on Effient and aspirin), HTN, HLD, CKD, gout, recurrent diverticulitis (first started 2 years ago, has been having 4 episodes per year; was recently admitted at [facility] 1
month ago for diverticulitis associated with E. coli bacteremia) who presented for recurrent diverticulitis with intramural abscess
AFVSS
Blood cx positive x 1/ for gram + cocci
No leukocytosis
CRP continues trending down
Plan:
- Continue LRD
� Continue IV Invanz; appreciate ID. Will likely need 2 to 3 weeks of IV antibiotics
� Pain control with Tylenol ATC, oxycodone and Dilaudid as needed
- OP cardiology follow up
- No emergent surgery planned at this time
� Appreciate hospitalist
- Will sign off, please contact us if any further issues arise.
Subjective Data
Subjective Data
Date of Service: March 29, 2025
Patient states he is doing well. He has no complaints. He has no pain. Tolerating a diet. He has bowel function.
Objective Data
-
Vital Signs
Temp Pulse Resp BP Pulse Ox
98.2 F 82 17 142/82 95
03/29/25 07:40 03/29/25 09:07 03/29/25 07:40 03/29/25 09:07 03/29/25 07:40
Intake & Output
03/28/25 03/29/25 03/30/25
06:59 06:59 06:59
Intake Total 60 / 60 60 / 60
Balance 60 / 60 60 / 60
Intake:
IV piggybacks 60 / 60 60 / 60
Other:
How many times incontinent 2
MODERATE amount urine
Number of approximated LARGE 1
amounts of urine
Lab Results
03/29/25 04:05
03/29/25 04:05
Physical Exam
-
General: No Acute Distress and AOx3
Abdomen: Soft, Non Distended and Non Tender
Skin: Warm and Dry
[2025-03-29 11:34] VITALS: BP 131/77
--- NOTE | 2025-03-29 11:52 | W.PN.ID1 ---
Date of Service
Date of Service: March 29, 2025
Today's Communication
Continue abx.
Assessment / Plan
Acute diverticulitis
Diverticular abscess (intramural)
GPC chains bacteremia 1 of 4 bottles (anaerobic bottle)
Leukocytosis
CAD; Hx recent GA (2 months ago in [place])
HTN
HLD
CKD stage IIIb
Tophaceous gout
Recommendations:
Patient has been evaluated by CRS. No surgery planned in the near future.
Continue with antibiotic therapy. Will likely need 2 to 3 weeks of IV antibiotics in order to calm down and adequately treat the intramural abscess.
Continue ertapenem.
Home infusion sheet completed and placed on paper chart.
Repeat blood cx's negatve
Place PICC line
Will follow weekly labs including BMP and CBC.
����������������������������������������������������������
Chief Complaint
-: Other (Diverticulitis with abscess)
Subjective / Review of Systems
Review of Systems: No Fever, No Chills and No Abdominal Pain
Vital Signs / Physical Exam
Vital Signs
Vital Signs
Temp Pulse Resp BP Pulse Ox
98.0 F 87 17 131/77 98
03/29/25 11:34 03/29/25 11:34 03/29/25 11:34 03/29/25 11:34 03/29/25 11:34
Physical Exam
Constitutional: No Acute Distress
Cardiovascular: Regular Rate and S1/S2
Pulmonary: Clear
Gastrointestinal: Soft, Tender (mild LLQ), Non Distended and Normal Bowel Sounds
Extremities: Negative Edema
Neurological: AO x 3
Objective Data
Lab Data
Lab Results
03/29/25 04:05
03/29/25 04:05
Estimated Creat Clear 52 ml/min 03/29/25 04:05
Lactic Acid Cancelled 03/24/25 21:30
Total Bilirubin 0.3 mg/dl (0.2-1.3) 03/29/25 04:05
AST 50 U/L (17-59) 03/29/25 04:05
ALT 52 U/L (0-50) H 03/29/25 04:05
Alkaline Phosphatase 99 U/L (38-126) 03/29/25 04:05
C-Reactive Protein 32.90 mg/L (0.0-10.00) H 03/28/25 05:12
Most recent labs reviewed.
Micro Results:
03/26/25 10:19 Blood Culture - Preliminary
Blood/Venous No Growth in 72 hours- Final report to follow
03/25/25 15:17 Salmonella/Shigella Culture - Final
Feces/Stool No Salmonella, Shigella, Aeromonas or Plesiomonas species
isolated.
Campylobacter Culture - Final
No Campylobacter species isolated.
Shiga Toxin Test - Final
No E. coli Shiga Toxin 1 or 2 detected.
03/26/25 09:39 Blood Culture - Preliminary
Blood/Venous No Growth in 72 hours- Final report to follow
03/24/25 18:25 Blood Culture - Preliminary
Blood/Venous No Growth in 4 days- Final report to follow
03/24/25 18:25 Blood Culture - Preliminary
Blood/Venous Anaerobic gram positive cocci : Blautia producta
Gram Stain - Preliminary
03/25/25 15:17 C. difficile GDH Antigen & Toxins - Final
Feces/Stool C. difficile antigen positive, toxin negative.
Clostridium difficile present, but toxin not detected.
Patient may be a carrier, colonized with nontoxinogenic
strain or the level of toxin in sample is below detection
limits. This information should be used in conjunction with
the patient's clinical history.
03/24/25 13:05 Influenza Types A & B (GABRIELLE) - Final
Nasal Swab Negative for Influenza A & B, NAAT
Negative results must be combined with clinical observations
and patient history.
Nucleic Acid Amplification test (NAAT)performed on the
[employer] platform.
Imaging:
03/24/2025 CT abdomen/pelvis with contrast: CT findings compatible with diverticulitis involving the distal descending colon and sigmoid colon. In the left anterolateral pelvis, there is an approximately 12 cm long segment of moderate severe wall
thickening involving the distal descending colon and superior sigmoid colon. Significant stranding of the adjacent fat. Findings are compatible with colitis, most likely diverticulitis with scattered diverticula are present involving the descending
colon and superior sigmoid colon. Additionally, in the anterior and superior wall of the involved segment, there is a focal predominantly fluid collection with a thickened enhancing border, also containing small foci of air. The appearance is
compatible with an intramural abscess, probably best seen on sagittal image 48 of series 203. This intramural abscess measures 3.5 cm AP by 1.9 cm transverse by 2.3 cm craniocaudal.
[2025-03-29] MEDS: INVANZ 60 MG IV (11:58)
[2025-03-29] MEDS: TYLENOL 1000 MG PO ×2 (11:59)
[2025-03-29 12:55] VITALS: BP 137/67
--- NOTE | 2025-03-29 13:01 | W.DCSUMMARY ---
Addendum entered and electronically signed by Randall Doshi MD 03/29/25 13:39:
Attending�addendum:
I�saw�and�evaluated�the�patient.�I�reviewed�the�resident�s�note�and�agree�with�findings�and�plan�as�documented�in�the�resident�s�note.��
�patient seen and examined at bedside, denies any chest pain or shortness of breath, no abdominal pain, no nausea, no vomiting, no diarrhea or constipation.
Physical�exam:
GENERAL : Patient is awake, alert, oriented x3
HEENT: Nonicteric sclerae, PERRLA, EOMI. Oropharynx clear. Moist mucous membranes. Conjunctivae appear well perfused.
CHEST: Chest wall is nontender.
HEART: Regular rate and rhythm without murmurs.
LUNGS: Clear to auscultation bilaterally.
ABDOMEN: Soft, positive bowel sounds, nontender, no organomegaly.
RECTAL: Deferred.
SKIN: No rash, no excessive bruising, petechiae, or purpura.
NEUROLOGIC: Cranial nerves II-XII intact without motor/sensory deficit.
�
Assessment/plan:
Sepsis secondary to complicated acute diverticulitis with intramural abscess.
Will be discharged today on IV ertapenem for 3 weeks.
Follow-up with surgery as outpatient
History of coronary artery disease.
No chest pain
Chronic kidney disease stage IIIa.
Stable kidney function.
Okay for discharge
CODE STATUS: Full code
DVT prophylaxis: Hep
Diet: Low residual diet
Disposition: Discharge home today
�
Total�time�spent�on�today�s�encounter�was�40�minutes�which�included�time�spent�in�counseling�the�patient/family�regarding�diagnosis�and�treatment�plan�as�listed�above,�goals�of�care,�and�symptom�management.�Case�was�discussed�with�nursing�staff,�spec
ialists,�and�care�coordinators/case�management.�All�labs�and�imaging�personally�reviewed�by�me.�Remainder�the�time�spent�in�detailed�review�of�previous�records,�lab�data,�imaging,�and�other�medical�provider�documentation.
Original Note:
Documented by User: Ricardo Weir MD, Resident 03/29/25 13:24
Discharge Summary
Discharge Data
Date of Admission: 03/24/25
Date of Discharge: 03/29/25
-
Pending Results: No
Hospital Course
Discharging Physician :
Randall Doshi
Disposition :
Home
Primary care physician :
Kaitlin Ball
Principal Discharge diagnosis :
Sepsis secondary to complicated acute diverticulitis with intramural abscess
Chronic Discharge diagnosis :
CAD, HTN, Hypercholesterolemia,Chronic kidney disease, gout
Hospital Course :
59-year-old male with past medical history significant for CAD status post stenting, hypertension, hyperlipidemia, gout, CKD presented with fever, chills and abdominal pain for last 3 days.In the emergency department here he was afebrile, blood
pressure was 110/54, pulse of 84 oxygen saturation of 98% on room air.WBC of 12.1, hemoglobin 10.9 platelet 300. BUN and creatinine with a 23 and 1.6 with a bicarb of 16.
CT of the abdomen pelvis showed findings compatible with diverticulitis involving the distal descending colon and sigmoid colon. There is evidence for intramural abscess.
IRAD consulted but abscess is too small to be drained
ID , recommended IV antibiotics, blood cultures initially 1 out of 4 bottles came back positive for gram-positive anaerobic cocci in chains and clusters, repeat blood cultures remain negative for 72 hours. PICC line placed and patient discharged on
IV antibiotics for 2 to 3 weeks. Follow-up with CBC and BMP every week.
Colorectal surgery consult appreciated-no need of emergent surgery-continue with antibiotics for 2 to 3 [id number] on outpatient basis to discuss further need of surgery. Patient has been having recurrent diverticulitis for last 2
years-ultimate solution is sigmoidectomy due to worsening diverticulitis-Will decide on outpatient basis
Patient will need cardiology fitness as he has been on dual antiplatelet therapy due to stenting done about 2 months ago. Patient has his own physician assistant primary care and will follow-up with them.
Important imaging findings :
03/24/25
IMPRESSION: CT findings compatible with diverticulitis involving the distal descending colon and sigmoid colon. There is evidence for intramural abscess as described. No evidence for free intraperitoneal air. No significant free pelvic fluid.
Small 5 mm low-density lesion within the anterior spleen, compatible with small cyst or hemangioma. No further imaging follow-up of this finding is felt to be needed.
Small fat-containing umbilical hernia with no evidence for inflammation/edema.
Moderate atrophy of the left kidney with patchy scarring. This finding is most commonly seen from chronic vascular insufficiency.
Multiple right-sided nephroliths. Preservation of right kidney parenchymal thickness. No evidence for ureteral calculus.
Discharge Plan
-
Patient Disposition: Home (Routine Discharge)
Discharge Diagnosis/Procedures: Sepsis secondary to complicated acute diverticulitis with intramural abscess
Condition: Fair
Diet: Low Residue
Activity: As tolerated
Driving Restrictions: As prior to admission
Bathing Restrictions: OK to Shower
Referrals:
Kaitlin Ball MD, Resident [Family Provider, General] - in less than 1 week
Chano Salinas MD [Active, ColoRectal] - in two to four weeks
Additional Discharge Medication Instructions: You do not yet have an appointment with Dr. Salinas, please call our office to schedule.
Prescriptions:
New
acetaminophen [Tylenol Extra Strength] 500 mg Tablet
1,000 mg PO Q6 14 Days Qty: 112 0RF
Ertapenem [Invanz] 1000 MG
0.9% Sodium Chloride [Nss] 50 ML
120 mls/hr IV Q24H
Ordered By: Ricardo Weir MD, Resident
Last Taken: 03/28/25 15:58 60 mls
Continued
metoprolol succinate [Toprol XL] 50 mg Tablet Extended Release 24 Hr
50 mg PO DAILY
prednisone 20 mg Tablet
20 mg PO DAILY
allopurinol 100 mg Tablet
100 mg PO DAILY
aspirin 81 mg Tablet,Delayed Release (Dr/Ec)
81 mg PO DAILY
amlodipine [Norvasc] 10 mg Tablet
10 mg PO DAILY
ibuprofen [Advil] 200 mg Tablet
400 mg PO Q8HPRN PRN (Reason: mild pain)
nitroglycerin [Nitrostat] 0.4 mg Tablet, Sublingual
0.4 mg SUBLINGUAL [id number] PRN (Reason: chest pain)
colchicine 0.6 mg Tablet
0.6 mg PO DAILYPRN PRN (Reason: gout)
losartan 100 mg Tablet
100 mg PO DAILY
Patient Comments:
no pharamcy fills
prasugrel HCl 10 mg Tablet
10 mg PO DAILY
Repatha SureClick 140 mg/mL Pen Injector
140 mg SC Q2W
Discharge Orders:
Discharge Patient (As Directed); Ordered 03/29/25
Ordered By: Randall Doshi
Discharge Date and Time
Print Language: MACEDONIAN

Documented by User: Randall Doshi MD 03/29/25 13:38
Discharge Summary
Discharge Data
Date of Admission: 03/24/25
Date of Discharge: 03/29/25
Discharge Plan
-
Patient Disposition: Home (Routine Discharge)
Discharge Diagnosis/Procedures: Sepsis secondary to complicated acute diverticulitis with intramural abscess
Condition: Fair
Diet: Low Residue
Activity: As tolerated
Driving Restrictions: As prior to admission
Bathing Restrictions: OK to Shower
Referrals:
Kaitlin Ball MD, Resident [Family Provider, General] - in less than 1 week
Chano Salinas MD [Active, ColoRectal] - in two to four weeks
Additional Discharge Medication Instructions: You do not yet have an appointment with Dr. Salinas, please call our office to schedule.
Prescriptions:
New
acetaminophen [Tylenol Extra Strength] 500 mg Tablet
1,000 mg PO Q6 14 Days Qty: 112 0RF
Ertapenem [Invanz] 1000 MG
0.9% Sodium Chloride [Nss] 50 ML
120 mls/hr IV Q24H
Ordered By: Ricardo Weir MD, Resident
Last Taken: 03/28/25 15:58 60 mls
Continued
metoprolol succinate [Toprol XL] 50 mg Tablet Extended Release 24 Hr
50 mg PO DAILY
prednisone 20 mg Tablet
20 mg PO DAILY
allopurinol 100 mg Tablet
100 mg PO DAILY
aspirin 81 mg Tablet,Delayed Release (Dr/Ec)
81 mg PO DAILY
amlodipine [Norvasc] 10 mg Tablet
10 mg PO DAILY
ibuprofen [Advil] 200 mg Tablet
400 mg PO Q8HPRN PRN (Reason: mild pain)
nitroglycerin [Nitrostat] 0.4 mg Tablet, Sublingual
0.4 mg SUBLINGUAL [id number] PRN (Reason: chest pain)
colchicine 0.6 mg Tablet
0.6 mg PO DAILYPRN PRN (Reason: gout)
losartan 100 mg Tablet
100 mg PO DAILY
Patient Comments:
no pharamcy fills
prasugrel HCl 10 mg Tablet
10 mg PO DAILY
Repatha SureClick 140 mg/mL Pen Injector
140 mg SC Q2W
Discharge Orders:
Discharge Patient (As Directed); Ordered 03/29/25
Ordered By: Randall Doshi
Discharge Date and Time
Print Language: MACEDONIAN
== END 2025-03-29 15:53 | disposition home or self-care (01) | DRG 872 ==
LOC: 3 WEST ACU 22:03
PROVIDERS: Emergency Medicine; Physician Assistant; ADMITTING PHYSICIAN Internal Medicine; ATTENDING PHYSICIAN General Practice; CONSULT PHYSICIAN Internal Medicine Infectious Disease; CONSULT PHYSICIAN Surgery; EMERGENCY PHYSICIAN Emergency Medicine; FAMILY PHYSICIAN Student in an Organized Health Care Education/Training Program
DX: A41.4 Sepsis due to anaerobes (principal); K57.20 Diverticulitis of large intestine with perforation and abscess without bleeding; I25.10 Atherosclerotic heart disease of native coronary artery without angina pectoris; N18.31 Chronic kidney disease, stage 3a; M1A.9XX1 Chronic gout, unspecified, with tophus (tophi); I13.10 Hypertensive heart and chronic kidney disease without heart failure, with stage 1 through stage 4 chronic kidney disease, or unspecified chronic kidney disease; K42.9 Umbilical hernia without obstruction or gangrene; E78.00 Pure hypercholesterolemia, unspecified; I25.2 Old myocardial infarction; Z79.899 Other long term (current) drug therapy; Z11.52 Encounter for screening for COVID-19; Z95.5 Presence of coronary angioplasty implant and graft; Z79.82 Long term (current) use of aspirin
CPT/HCPCS: 74177; 80048; 80053; 81003; 81015; 83605; 83690; 83735; 85025; 85027; 86140; 87040; 87045; 87046; 87077; 87205; 87324; 87427; 87449; 87502; 87811; 93306; J1335; Q9967